=== PATIENT | female | born 1980 | race American Indian/Alaskan Native ===

== ENCOUNTER 2016-08-03 21:27 | Emergency (ER) | payer BC ==
[2016-08-03 23:18] VITALS: BP 126/90
[2016-08-03 23:43] LABS: Hematocrit 44.2 % (30.3-42.9); Hemoglobin 14.8 gm/dl (10.1-14.3); Mean Corpuscular HGB Conc 34 % (30-34); Mean Corpuscular Hemoglobin 30 pg (28-32); Mean Corpuscular Volume 88 fl (79-97); Platelet Count 394 K/mm3 (140-440); Red Blood Count 5.01 M/mm3 (3.65-5.03); Red Cell Distribution Width 13.4 % (13.2-15.2); White Blood Count 13.2 K/mm3 (4.5-11.0)
[2016-08-03 23:56] LABS: Anion Gap 20 mmol/L; Blood Urea Nitrogen 9 mg/dL (7-17); Calcium 9.3 mg/dL (8.4-10.2); Carbon Dioxide 26 mmol/L (22-30); Chloride 93.4 mmol/L (98-107); Glucose 98 mg/dL (65-100); Potassium 3.1 mmol/L (3.6-5.0); Sodium 136 mmol/L (137-145)
[2016-08-04 01:14] LABS: Basophils % (Manual) 0 % (0.0-1.8); Blastocytes % (Manual) 0 %; Eosinophils % (Manual) 0 % (0.0-4.3)
[2016-08-04 01:15] LABS: Diff Status Complete; RBC Morphology Normal
[2016-08-04 01:41] LABS: Bacteria,Urine 1+ /HPF (Negative); Bilirubin,Urine NEG (Negative); Blood,Urine NEG (Negative); Ketones,Urine NEG (Negative); Leukocyte Esterase,Urine NEG (Negative); Mucus,Urine 1+ /HPF; Nitrite,Urine NEG (Negative); Protein,Urine <15 mg/dL mg/dL (Negative); Urobilinogen,Urine < 2.0 mg/dL (<2.0)
--- NOTE | 2016-08-05 19:27 | ED Elopement Review ---
ED Pt Elopement review - Results review Lab results: Laboratory Tests 08/03/16 08/03/16 08/04/16 23:27 23:27 00:46 WBC 13.2 H RBC 5.01 Hgb 14.8 H Hct 44.2 H MCV 88 MCH 30 MCHC 34 RDW 13.4 Plt Count 394 Lymph # Patrol Supervisor Add Manual Diff Complete Total Counted 100 Seg Neuts % (Manual) 61.0 Band Neutrophils % 0 Lymphocytes % (Manual) 31.0 Reactive Lymphs % (Man) 2.0 Monocytes % (Manual) 6.0 Eosinophils % (Manual) 0 Basophils % (Manual) 0 Metamyelocytes % 0 Myelocytes % 0 Promyelocytes % 0 Blast Cells % 0 Nucleated RBC % Not Reportable Seg Neutrophils # Man 8.1 H Band Neutrophils # 0.0 Lymphocytes # (Manual) 4.1 Abs React Lymphs (Man) 0.3 Monocytes # (Manual) 0.8 Eosinophils # (Manual) 0.0 Basophils # (Manual) 0.0 Metamyelocytes # 0.0 Myelocytes # 0.0 Promyelocytes # 0.0 Blast Cells # 0.0 WBC Morphology Not Reportable Hypersegmented Neuts Not Reportable Hyposegmented Neuts Not Reportable Hypogranular Neuts Not Reportable Smudge Cells Not Reportable Toxic Granulation Not Reportable Toxic Vacuolation Not Reportable Dohle Bodies Not Reportable Pelger-Huet Anomaly Not Reportable Bebeto Rods Not Reportable Platelet Estimate Appears normal Clumped Platelets Not Reportable Plt Clumps, EDTA Not Reportable Large Platelets Not Reportable Giant Platelets Not Reportable Platelet Satelliting Not Reportable Plt Morphology Comment Not Reportable RBC Morphology Normal Dimorphic RBCs Not Reportable Polychromasia Not Reportable Hypochromasia Not Reportable Poikilocytosis Not Reportable Anisocytosis Not Reportable Microcytosis Not Reportable Macrocytosis Not Reportable Spherocytes Not Reportable Pappenheimer Bodies Not Reportable Sickle Cells Not Reportable Target Cells Not Reportable Tear Drop Cells Not Reportable Ovalocytes Not Reportable Helmet Cells Not Reportable Mendoza-Hilltop Bodies Not Reportable [place] Rings Not Reportable [place] Cells Not Reportable Bite Cells Not Reportable Crenated Cell Not Reportable Elliptocytes Not Reportable Acanthocytes (Spur) Not Reportable Rouleaux Not Reportable Hemoglobin C Crystals Not Reportable Schistocytes Not Reportable Malaria parasites Not Reportable Nikolas Bodies Not Reportable Hem Pathologist Commnt No Sodium 136 L Potassium 3.1 L Chloride 93.4 L Carbon Dioxide 26 Anion Gap 20 BUN 9 Creatinine 1.0 Estimated GFR > 60 BUN/Creatinine Ratio 9.00 Glucose 98 Calcium 9.3 Urine Color Yellow Urine Turbidity Slightly-cloudy Urine pH 5.0 Ur Specific [place] 1.025 Urine Protein <15 mg/dl Urine Glucose (UA) Neg Urine Ketones Neg Urine Blood Neg Urine Nitrite Neg Ur Reducing Substances Not Reportable Urine Bilirubin Neg Urine Ictotest Not Reportable Urine Urobilinogen < 2.0 Ur Leukocyte Esterase Neg Urine WBC (Auto) 2.0 Urine RBC (Auto) 1.0 U Epithel Cells (Auto) 9.0 Urine Bacteria (Auto) 1+ Urine Mucus 1+ Urine HCG, Qual Negative - Call Back decision Pt Call Back Decision: No action required
== END 2016-08-04 06:25 | disposition left against medical advice (07) ==
LOC: ED 21:27
DX: G43.909 Migraine, unspecified, not intractable, without status migrainosus (principal); R19.7 Diarrhea, unspecified; R11.2 Nausea with vomiting, unspecified; Z88.8 Allergy status to other drugs, medicaments and biological substances; Z53.21 Procedure and treatment not carried out due to patient leaving prior to being seen by health care provider
CPT/HCPCS: 36415; 80048; 81001; 81025; 85007; 85025

== ENCOUNTER 2016-09-11 10:25 | Emergency (ER) | payer BC ==
--- NOTE | 2016-09-11 11:19 | Emergency Department Report ---
Entered by HIGINIO RANGEL, acting as scribe for MARIBEL MCKAY NP. Chief Complaint: Headache Stated Complaint: LUMBAR PUNCTURE HEADACHE Time Seen by Provider: 09/11/16 10:56 - HPI History of Present Illness: 36 y/o female presents c/o DE LEON that started yesterday after a lumbar puncture. Hx includes migraines. She notes having an appt with her PCP in 3 days. she had procedure at [facility] of suspected MS. she is neuro intact no photophobia out of her pain meds nothing makes pain better or worse playing on her cell phone NAD ambulatory VSS MAEW no focal or neuro deficit Discussed w Dr Pena Records requested of medic in fast track from yesterday. - ROS Review of Systems: as noted in HPI - Exam Vital Signs: Vital Signs 09/11/16 10:36 Temperature 98.3 F Pulse Rate 81 Respiratory 18 Rate Blood Pressure 144/91 O2 Sat by Pulse 100 Oximetry Physical Exam: as noted in HPI MSE screening note: Focused history and physical exam performed. Due to findings the following was ordered: Patient discussed with doctor:: ANGEL PENA ED Disposition for MSE Condition: Stable This documentation as recorded by the scribe,HIGINIO RANGEL,accurately reflects the service I personally performed and the decisions made by me,MARIBEL MCKAY NP.
[2016-09-11] MEDS ORDERED: MORPHINE IV ONE (13:09)
[2016-09-11] MEDS ORDERED: ZOFRAN IV ONE (13:09)
[2016-09-11] MEDS ORDERED: NACL 0.9% 1000 ML 1,000 ML IV ONE (13:09)
--- NOTE | 2016-09-11 13:11 | Emergency Department Report ---
ED Headache HPI - General Chief Complaint: Headache Stated Complaint: LUMBAR PUNCTURE HEADACHE Time Seen by Provider: 09/11/16 13:08 Source: patient, family Exam Limitations: no limitations - History of Present Illness Initial Comments: Here reported that she had lumbar puncture at [facility] yesterday. She said the physician felt like she had MS and did a LP. Patient denies any fever or chills. Denies any nausea or vomiting. She said she usually has migraine but she is having a headache that is worse with movement that's not her usual migraine padding pattern. She said her headache started 3 hours after LP and she came today by EMS. She reports that she's having nausea and also pain in the back of her neck. Denies any injury. Pain is started in the back of her head radiating to the front and it started about a 10 and achy and throbbing. Denies any numbness or tingling to extremities. positie lower back pain. Denies any loss of bowel or bladder control. Patient was placed on oxycodone and Phenergan with Rizatriptan and Prozac for headache yesterday and she reports that it is not helping. Timing/Duration: 24 hours Quality: severe, achy, throbbing Head Injury Location: other (no head injury) Recent Head Trauma: chronic headaches, other (status post LP) Modifying Factors: improves with: medication, movement Associated Symptoms: nausea/vomiting. denies: confusion, fatigue, facial pain, fever/chills, flushing, loss of consciousness, nasal congestion, nasal drainage , numbness in legs/feet, rash, seizures, sinus infection, stiff neck, vision changes, weakness Allergies/Adverse Reactions: Allergies tramadol Allergy (Verified 05/10/13 17:06) Unknown naproxen [From Naprosyn] Adverse Reaction (Verified 07/29/13 21:12) Shortness of Breath Home Medications: Ambulatory Orders Promethazine [Phenergan] 25 mg PO HS PRN #5 tab 10/24/14 Cymbalta 20 mg PO DAILY 09/11/16 Oxycodone HCl/Acetaminophen [Percocet 7.5/325 mg] 1 each PO Q6HR PRN 09/11/16 Rizatriptan Benzoate [Maxalt] 10 mg PO PRN 09/11/16 ED Review of Systems ROS: Stated complaint: LUMBAR PUNCTURE HEADACHE Other details as noted in HPI Comment: All other systems reviewed and negative Constitutional: denies: chills, fever Eyes: denies: eye pain, vision change ENT: denies: ear pain, throat pain, congestion Respiratory: no symptoms reported Cardiovascular: denies: chest pain, palpitations, edema, syncope Gastrointestinal: nausea, vomiting. denies: abdominal pain, diarrhea, constipation, hematemesis Musculoskeletal: back pain, other (neck pain). denies: arthralgia Skin: denies: rash Neurological: headache. denies: weakness, numbness, paresthesias, confusion, abnormal gait, vertigo ED Past Medical Hx - Past Medical History Previous Medical History?: Yes Hx Hypertension: Yes Hx Congestive Heart Failure: No Hx Diabetes: No Hx Headaches / Migraines: Yes Hx Asthma: No Hx COPD: No Hx HIV: No Additional medical history: migraines - Surgical History Past Surgical History?: Yes Additional Surgical History: tonsillectomy - Family History Family history: no significant - Social History Smoking Status: Never Smoker Substance Use Type: Prescribed - Medications Home Medications: Home Medications Medication Instructions Recorded Confirmed Last Taken Type Promethazine [Phenergan] 25 mg PO HS PRN #5 tab 10/24/14 Unknown Rx Cymbalta 20 mg PO DAILY 09/11/16 09/11/16 Unknown History Oxycodone HCl/Acetaminophen 1 each PO Q6HR PRN 09/11/16 09/11/16 Unknown History [Percocet 7.5/325 mg] Rizatriptan Benzoate [Maxalt] 10 mg PO PRN 09/11/16 09/11/16 Unknown History ED Physical Exam - General Limitations: No Limitations General appearance: alert, in no apparent distress - Head Head exam: Present: atraumatic, normocephalic, normal inspection - Expanded Head Exam Expanded Head exam: Absent: laceration, abrasion, contusion, hematoma, racoon eyes, taylor's sign, general tenderness, tenderness of temporal artery, CSF rhinorrhea , CSF otorrhea - Eye Eye exam: Present: normal appearance, PERRL, EOMI. Absent: conjunctival injection, periorbital swelling, periorbital tenderness Pupils: Present: normal accommodation - ENT ENT exam: Present: normal exam, normal orophraynx, mucous membranes moist, TM's normal bilaterally, normal external ear exam - Neck Neck exam: Present: normal inspection, full ROM. Absent: tenderness, meningismus, lymphadenopathy - Expanded Neck Exam Expanded Neck exam: Absent: tenderness, midline deformity, anterior neck swelling, tracheal deviation - Respiratory Respiratory exam: Present: normal lung sounds bilaterally. Absent: respiratory distress, chest wall tenderness - Cardiovascular Cardiovascular Exam: Present: regular rate, normal rhythm, normal heart sounds - GI/Abdominal GI/Abdominal exam: Present: soft, normal bowel sounds. Absent: distended, tenderness, guarding, rebound, rigid - Extremities Exam Extremities exam: Present: normal inspection, full ROM, normal capillary refill. Absent: tenderness, pedal edema, joint swelling, calf tenderness - Back Exam Back exam: Present: normal inspection, full ROM, tenderness (L spine at LP site) , other (Band-Aid to LP site. Removed and no redness swelling or drainage noted. Mild tenderness to palpate to lumbar puncture site at L spine.). Absent : CVA tenderness (R), CVA tenderness (L), muscle spasm, paraspinal tenderness, vertebral tenderness, rash noted - Expanded Back Exam Expanded Back exam: Absent: saddle anesthesia Back exam: Negative Straight Leg Raising: Left, Right - Neurological Exam Neurological exam: Present: alert, oriented X3, normal gait, reflexes normal. Absent: motor sensory deficit - Expanded Neurological Exam Expanded Neurological exam: Absent: innattentive, memory loss-remote event, memory loss- recent event, ataxia, receptive aphasia, expressive aphasia, total aphasia, tremor, protecting the airway Patient oriented to: Present: person, place, time Speech: Present: fluid speech Cranial nerves: EOM's Intact: Normal, Gag Reflex: Normal, Nystagmus: Normal, Facial Sensation: Normal Cerebellar function: Romberg: Normal Upper motor neuron: Pronator Drift: Normal, Sensory Extinction: Normal Sensory exam: Upper Extremity Light Touch: Normal, Upper Extremity Pin Prick: Normal, Upper Extremity Temperature: Normal, UE 2 Point Discrimination: Normal, Lower Extremity Light Touch: Normal, Lower Extremity Pin Prick: Normal, Lower Extremity Temperature: Normal, LE 2 Point Discrimination: Normal Motor strength exam: RUE: 5, LUE: 5, RLE: 5, LLE: 5 DTR: bicep (R): 2+, bicep (L): 2+, tricep (R): 2+, tricep (L): 2+, knee (R): 2+ , knee (L): 2+, ankle (R): 2+, ankle (L): 2+ Best Eye Response (Samia): (4) open spontaneously Best Motor Response (Samia): (6) obeys commands Best Verbal Response (Samia): (5) oriented [place] Total: 15 - Psychiatric Psychiatric exam: Present: normal affect, normal mood - Skin Skin exam: Present: warm, dry, intact, normal color, other (lumbar spine area at LP site without any redness, swelling or drainage.) ED Course Vital Signs 09/11/16 09/11/16 09/11/16 10:36 16:19 17:29 Temperature 98.3 F Pulse Rate 81 78 78 Respiratory 18 20 Rate Blood Pressure 144/91 Blood Pressure 158/116 140/92 [Left] O2 Sat by Pulse 100 98 Oximetry - Reevaluation(s) Reevaluation #1: 09/11/16 16:18 Patient status post blood patch done by anesthesiologist. She is currently laying flat and he will be coming back to reassess her in 30 minutes. During ED stay patient received 1 L of IV fluid, a milligram of morphine and 4 mg of Zofran IV. Her headache was not relieved says she received additional Percocet 2 tablets. Vitals Signs are stable. Reevaluation #2: 09/11/16 16:59 Patient stabilizes. She is resting status post blood patch. No further headache per patient. reporting nausea from Percocet. 09/11/16 17:01 Reevaluation #3: 09/11/16 17:38 Anesthesia came to evaluate patient after blood patch done. Patient stable ambulating without any difficulties and she is no longer having any headache, neck pain or nausea. Reevaluation #4: 09/11/16 17:42 Patient is neurologically intact status post blood patch - Consultations Consultation #1: 09/11/16 16:19 Dr. Yariel Chery, Anesthesia for blood patch ED Medical Decision Making - Lab Data Result diagrams: 09/11/16 13:32 09/11/16 13:32 Lab Results 09/11/16 09/11/16 09/11/16 Range/Units 13:32 13:32 14:30 WBC 8.0 (4.5-11.0) K/mm3 RBC 4.25 (3.65-5.03) M/mm3 Hgb 12.5 (10.1-14.3) gm/dl Hct 38.6 (30.3-42.9) % MCV 91 (79-97) fl MCH 29 (28-32) pg MCHC 32 (30-34) % RDW 14.1 (13.2-15.2) % Plt Count 315 (140-440) K/mm3 Lymph % (Auto) 14.5 (13.4-35.0) % [place] % (Auto) 3.7 (0.0-7.3) % Eos % (Auto) 0.3 (0.0-4.3) % Baso % (Auto) 0.4 (0.0-1.8) % Lymph # 1.2 (1.2-5.4) K/mm3 [place] # 0.3 (0.0-0.8) K/mm3 Eos # 0.0 (0.0-0.4) K/mm3 Baso # 0.0 (0.0-0.1) K/mm3 Seg Neutrophils % 81.1 H (40.0-70.0) % Seg Neutrophils # 6.5 (1.8-7.7) K/mm3 Sodium 139 (137-145) mmol/L Potassium 4.2 (3.6-5.0) mmol/L Chloride 104.0 (98-107) mmol/L Carbon Dioxide 21 L (22-30) mmol/L Anion Gap 18 mmol/L BUN 8 (7-17) mg/dL Creatinine 0.7 (0.7-1.2) mg/dL Estimated GFR > 60 ml/min BUN/Creatinine Ratio 11.42 % Glucose 117 H (65-100) mg/dL Calcium 9.2 (8.4-10.2) mg/dL Urine Color Yellow (Yellow) Urine Turbidity Cloudy (Clear) Urine pH 7.0 (5.0-7.0) Ur Specific [place] 1.024 (1.003-1.030) Urine Protein <15 mg/dl (Negative) mg/dL Urine Glucose (UA) Neg (Negative) mg/dL Urine Ketones Neg (Negative) mg/dL Urine Blood Neg (Negative) Urine Nitrite Neg (Negative) Ur Reducing Substances Not Reportable Urine Bilirubin Neg (Negative) Urine Ictotest Not Reportable Urine Urobilinogen < 2.0 (<2.0) mg/dL Ur Leukocyte Esterase Neg (Negative) Urine WBC (Auto) 6.0 (0.0-6.0) /HPF Urine RBC (Auto) < 1.0 (0.0-6.0) /HPF U Epithel Cells (Auto) 4.0 (0-13.0) /HPF Urine Bacteria (Auto) 1+ (Negative) /HPF Amorphous Crystals Few Urine Mucus Few /HPF Urine HCG, Qual Negative (Negative) - Medical Decision Making ED course: S/P blood patch done by anesthesiologist. He'll reevaluate the patient after 30 minutes of procedure. Patient able to ambulate in marsh[place] without any difficulties, her blood pressure spiked after procedure but it's not normalized. She denies any headache, back pain, neck pain or nausea. Instructions was given to patient status post blood patch by anesthesiologist. I also explained to her that she needs to follow-up with her neurologist and her primary care physician. Patient given 1 L of IV fluid normal saline, 4 mg of morphine IV and 4 mg Zofran IV without any relief of headache. Her headache with positional and aggravated with getting up and moving her head. She received an additional Percocet 5/325 2 tablets and Zofran 4 mg ODT in emergency room. Patient headache relieved after that patch done. Discharged home with family in stable condition. Critical care attestation.: If time is entered above; I have spent that time in minutes in the direct care of this critically ill patient, excluding procedure time. ED Disposition Clinical Impression: Headache, post-lumbar puncture, Nausea and vomiting in adult Back pain Qualifiers: Back pain location: low back pain Chronicity: acute Back pain laterality: midline Sciatica presence: without sciatica Qualified Code(s): M54.5 - Low back pain Disposition: DISCHARGED TO HOME OR SELFCARE Is pt being admited?: No Does the pt Need Aspirin: No Condition: Stable Instructions: Lumbar Puncture (ED), Acute Low Back Pain (ED), Acute Headache ( ED), Acute Nausea and Vomiting (ED) Additional Instructions: Please rest for the next 24 hours If you, Develop recurrent headache that is not relieved by medication return to the emergency room Follow up with your neurologist and primary care physician. Referrals: PRIMARY CARE, [Primary Care Provider] - 09/12/16 CHITO CARTER MD [Staff Physician] - 2-3 Days Forms: Accompanied Note, Work/School Release Form(ED)
[2016-09-11 13:52] LABS: Basophils % (Auto) 0.4 % (0.0-1.8); Eosinophils % (Auto) 0.3 % (0.0-4.3); Hematocrit 38.6 % (30.3-42.9); Hemoglobin 12.5 gm/dl (10.1-14.3); Mean Corpuscular HGB Conc 32 % (30-34); Mean Corpuscular Hemoglobin 29 pg (28-32); Mean Corpuscular Volume 91 fl (79-97); Platelet Count 315 K/mm3 (140-440); Red Blood Count 4.25 M/mm3 (3.65-5.03); Red Cell Distribution Width 14.1 % (13.2-15.2)
[2016-09-11 14:45] LABS: Anion Gap 18 mmol/L; BUN/Creatinine Ratio 11.42; Blood Urea Nitrogen 8 mg/dL (7-17); Calcium 9.2 mg/dL (8.4-10.2); Carbon Dioxide 21 mmol/L (22-30); Glucose 117 mg/dL (65-100); Potassium 4.2 mmol/L (3.6-5.0); Sodium 139 mmol/L (137-145)
[2016-09-11 14:56] LABS: Bacteria,Urine 1+ /HPF (Negative); Bilirubin,Urine NEG (Negative); Blood,Urine NEG (Negative); Ketones,Urine NEG (Negative); Leukocyte Esterase,Urine NEG (Negative); Mucus,Urine FEW /HPF; Nitrite,Urine NEG (Negative); Protein,Urine <15 mg/dL mg/dL (Negative); RBC,Urine < 1.0 /HPF (0.0-6.0); Urobilinogen,Urine < 2.0 mg/dL (<2.0)
[2016-09-11] MEDS ORDERED: PERCOCET 5/325 PO ONE (15:43)
--- NOTE | 2016-09-11 16:38 | Progress Note ---
Subjective Date of service: 09/11/16 Interval history: Called in by ER doctor to see the patient with a headache after lumbar puncture done on 09/10/16. Headache is predominantly in occipital area worsening with the patient in the vertical position. There is also tightness in the posterior neck. Due to the character of the pain patient given options of conservative treatment or blood patch. Patient has elected blood patch option. After discussing potential benefits and complications of the procedure consent for it was obtained. In sterile conditions G20 angiocath was placed in right antecubital vein. In sterile condition G18 needle was placed in L3-L4 space and 8ml of patient's blood was injected in the epidural space until the patient felt the pressure in her lower back. Patient placed in the horizontal position on the bed. Headache became much less intense with neckache is gone. No complications Objective - Constitutional Vitals: Vital Signs - 12hr 09/11/16 09/11/16 10:36 16:19 Temperature 98.3 F Pulse Rate 81 78 Respiratory 18 20 Rate Blood Pressure 144/91 Blood Pressure 158/116 [Left] O2 Sat by Pulse 100 98 Oximetry - Labs CBC & Chem 7: 09/11/16 13:32 09/11/16 13:32 Labs: Abnormal lab results 09/11/16 09/11/16 Range/Units 13:32 13:32 Seg Neutrophils % 81.1 H (40.0-70.0) % Carbon Dioxide 21 L (22-30) mmol/L Glucose 117 H (65-100) mg/dL
[2016-09-11] MEDS ORDERED: ZOFRAN ODT PO ONE (17:02)
[2016-09-11 17:29] VITALS: BP 140/92
== END 2016-09-11 17:59 | disposition home or self-care (01) ==
LOC: ED 10:25
DX: R51 Headache (principal); R11.2 Nausea with vomiting, unspecified; M54.5 Low back pain; G43.909 Migraine, unspecified, not intractable, without status migrainosus; I10 Essential (primary) hypertension; Z88.8 Allergy status to other drugs, medicaments and biological substances
CPT/HCPCS: 36415; 80048; 81001; 81025; 85025; 96361; 96374; 96375; 99284; J2270; J2405; J7030; Q0162

== ENCOUNTER 2016-10-23 18:33 | Emergency (ER) | payer BC ==
[2016-10-23 18:45] VITALS: BP 141/97
[2016-10-23] MEDS ORDERED: DECADRON IM ONE (21:50)
--- NOTE | 2016-10-23 22:11 | Emergency Department Report ---
ED General Adult HPI - General Chief complaint: Extremity Injury, Lower Stated complaint: LT FOOT SWOLLEN /LT SIDE BODY PAIN Time Seen by Provider: 10/23/16 21:31 Source: patient Mode of arrival: Ambulatory Limitations: No Limitations - History of Present Illness Initial comments: Patient comes into the ER today with complaints of left foot pain and swelling as well as left leg pain. Patient denies any injury. Patient states the swelling seems to get worse when she is ambulatory and upper feet. Patient does state that the swelling does go down when she elevates it. Patient does state that she was recently diagnosed with MS and she is unsure as to if that's what causing some of her symptoms or if there is anything else. Patient denies any injury to the area. Patient denies any chest pain, shortness of breath, abdominal pain. -: days(s) (3) - Related Data Home Medications Medication Instructions Recorded Confirmed Last Taken Cymbalta 20 mg PO DAILY 09/11/16 09/11/16 Unknown Rizatriptan Benzoate [Maxalt] 10 mg PO PRN 09/11/16 09/11/16 Unknown Previous Rx's Medication Instructions Recorded Last Taken Type Promethazine [Phenergan TAB] 25 mg PO HS PRN #5 tab 10/24/14 Unknown Rx Acetaminophen/Codeine [Tylenol 1 tab PO Q6H PRN #18 tab 10/23/16 Unknown Rx /Codeine # 3 tab] Cyclobenzaprine [Flexeril] 10 mg PO BID PRN #20 tablet 10/23/16 Unknown Rx predniSONE [Deltasone] 20 mg PO QDAY #18 tab 10/23/16 Unknown Rx Allergies Allergy/AdvReac Type Severity Reaction Status Date / Time tramadol Allergy Unknown Verified 05/10/13 17:06 naproxen [From Naprosyn] AdvReac Shortness Verified 07/29/13 21:12 of Breath ED Review of Systems ROS: Stated complaint: LT FOOT SWOLLEN /LT SIDE BODY PAIN Other details as noted in HPI Constitutional: denies: chills, fever Eyes: denies: eye pain, eye discharge, vision change ENT: denies: ear pain, throat pain Respiratory: denies: cough, shortness of breath, wheezing Cardiovascular: denies: chest pain, palpitations Endocrine: no symptoms reported Gastrointestinal: denies: abdominal pain, nausea, diarrhea Genitourinary: denies: urgency, dysuria, discharge Musculoskeletal: other (left leg pain, left arm pain). denies: back pain, joint swelling, arthralgia Skin: denies: rash, lesions Neurological: denies: headache, weakness, numbness, paresthesias, confusion, vertigo Psychiatric: denies: anxiety, depression Hematological/Lymphatic: denies: easy bleeding, easy bruising ED Past Medical Hx - Past Medical History Previous Medical History?: Yes Hx Hypertension: Yes Hx Congestive Heart Failure: No Hx Diabetes: No Hx Headaches / Migraines: Yes Hx Asthma: No Hx COPD: No Hx HIV: No Additional medical history: migraines, MS - Surgical History Past Surgical History?: Yes Additional Surgical History: tonsillectomy - Social History Smoking Status: Never Smoker Substance Use Type: Prescribed - Medications Home Medications: Home Medications Medication Instructions Recorded Confirmed Last Taken Type Promethazine [Phenergan TAB] 25 mg PO HS PRN #5 tab 10/24/14 Unknown Rx Cymbalta 20 mg PO DAILY 09/11/16 09/11/16 Unknown History Rizatriptan Benzoate [Maxalt] 10 mg PO PRN 09/11/16 09/11/16 Unknown History Acetaminophen/Codeine [Tylenol 1 tab PO Q6H PRN #18 tab 10/23/16 Unknown Rx /Codeine # 3 tab] Cyclobenzaprine [Flexeril] 10 mg PO BID PRN #20 tablet 10/23/16 Unknown Rx predniSONE [Deltasone] 20 mg PO QDAY #18 tab 10/23/16 Unknown Rx ED Physical Exam - General Limitations: No Limitations General appearance: alert, in no apparent distress - Head Head exam: Present: atraumatic, normocephalic, normal inspection - Eye Eye exam: Present: normal appearance, PERRL, EOMI Pupils: Present: normal accommodation - ENT ENT exam: Present: normal exam, mucous membranes moist, normal external ear exam - Neck Neck exam: Present: normal inspection, full ROM. Absent: tenderness, meningismus, lymphadenopathy - Respiratory Respiratory exam: Present: normal lung sounds bilaterally. Absent: respiratory distress, wheezes, rales, rhonchi, stridor, chest wall tenderness, decreased breath sounds - Cardiovascular Cardiovascular Exam: Present: regular rate, normal rhythm, normal heart sounds. Absent: systolic murmur, diastolic murmur, rubs, gallop - GI/Abdominal GI/Abdominal exam: Present: soft, normal bowel sounds. Absent: distended, tenderness - Extremities Exam Extremities exam: Present: normal inspection, full ROM, tenderness, normal capillary refill, joint swelling (minimal left ankle and foot swelling noted in comparison to right.), other (left posterior hamstring tenderness along the sciatic line). Absent: pedal edema, calf tenderness - Back Exam Back exam: Present: normal inspection, tenderness (left SI joint tenderness that patient states reproduces pain into left leg). Absent: CVA tenderness (R) , CVA tenderness (L) - Neurological Exam Neurological exam: Present: alert, oriented X3, CN II-XII intact, normal gait, reflexes normal. Absent: motor sensory deficit - Psychiatric Psychiatric exam: Present: normal affect, normal mood. Absent: anxious - Skin Skin exam: Present: warm, dry, intact, normal color. Absent: rash ED Course Vital Signs 10/23/16 18:42 Temperature 98.5 F Pulse Rate 99 H Respiratory 18 Rate Blood Pressure 141/97 O2 Sat by Pulse 99 Oximetry ED Medical Decision Making - Medical Decision Making Patient is nontoxic and hemodynamically stable. I informed patient that some of her symptoms may be related to her MS. Exam-romero, patient does have findings more consistent with sciatica. Physical exam is not consistent with potential DVT. Patient states that the swelling subsides with elevation. Patient was given Decadron 10 mg IM here in the ER and I will continue her on a short course of medications to decrease inflammation as well as treat her pain. Patient has not started on her medications prescribed by the specialist for her MS. I have instructed patient on signs and symptoms to look for towards any DVT, but at this time she clinically does not have such symptoms. Patient is in agreement with treatment plan and patient is stable for discharge. Critical care attestation.: If time is entered above; I have spent that time in minutes in the direct care of this critically ill patient, excluding procedure time. ED Disposition Clinical Impression: Left leg pain, Sciatica of left side, History of multiple sclerosis Disposition: TO HOME OR SELFCARE Is pt being admited?: No Does the pt Need Aspirin: No Condition: Good Instructions: Lumbar Radiculopathy (ED), Sciatica (ED) Prescriptions: Acetaminophen/Codeine [Tylenol /Codeine # 3 tab] 1 tab PO Q6H PRN #18 tab PRN Reason: Pain Cyclobenzaprine [Flexeril] 10 mg PO BID PRN #20 tablet PRN Reason: Muscle Spasm predniSONE [Deltasone] 20 mg PO QDAY #18 tab Referrals: PRIMARY CARE, [Primary Care Provider] - 3-5 Days Time of Disposition: 22:15
== END 2016-10-23 22:29 | disposition home or self-care (01) ==
LOC: ED 18:33
DX: M79.605 Pain in left leg (principal); M54.32 Sciatica, left side; I10 Essential (primary) hypertension; G43.909 Migraine, unspecified, not intractable, without status migrainosus; Z88.6 Allergy status to analgesic agent
CPT/HCPCS: 96372; 99282; J1100

== ENCOUNTER 2017-02-08 20:38 | Emergency (ER) | payer BC ==
[2017-02-08 21:17] LABS: Basophils % (Auto) 0.6 % (0.0-1.8); Eosinophils % (Auto) 2.5 % (0.0-4.3); Hematocrit 39.5 % (30.3-42.9); Hemoglobin 12.7 gm/dl (10.1-14.3); Mean Corpuscular HGB Conc 32 % (30-34); Mean Corpuscular Hemoglobin 30 pg (28-32); Mean Corpuscular Volume 92 fl (79-97); Platelet Count 299 K/mm3 (140-440); Red Blood Count 4.31 M/mm3 (3.65-5.03); Red Cell Distribution Width 14.3 % (13.2-15.2); White Blood Count 7.2 K/mm3 (4.5-11.0)
[2017-02-08 21:32] LABS: Anion Gap 16 mmol/L; BUN/Creatinine Ratio 14.28; Blood Urea Nitrogen 10 mg/dL (7-17); Calcium 9.7 mg/dL (8.4-10.2); Carbon Dioxide 27 mmol/L (22-30); Chloride 101.2 mmol/L (98-107); Glucose 82 mg/dL (65-100); Potassium 4.2 mmol/L (3.6-5.0); Sodium 140 mmol/L (137-145)
[2017-02-08 21:55] LABS: Bilirubin,Urine NEG (Negative); Blood,Urine NEG (Negative); Ketones,Urine NEG (Negative); Leukocyte Esterase,Urine NEG (Negative); Mucus,Urine FEW /HPF; Nitrite,Urine NEG (Negative); Protein,Urine <15 mg/dL mg/dL (Negative); WBC,Urine < 1.0 /HPF (0.0-6.0)
[2017-02-09 10:05] VITALS: BP 134/67
--- NOTE | 2017-02-09 12:10 | Emergency Department Report ---
ED General Adult HPI - General Chief complaint: Pain General Stated complaint: BODY PAIN FROM MS Time Seen by Provider: 02/09/17 12:06 Source: patient Mode of arrival: Ambulatory Limitations: No Limitations - History of Present Illness Initial comments: "My whole body hurts". Patient believes that she is having MS body pain. She states that she was diagnosed with MS on the basis of an MRI and spinal tap and goes to an MS clinic. She takes oxycodone for migraine as well. She does not localize her pain it is just allodynia. She denies any swollen joints. She's had no neurological change. She denies fever or chills. The patient states she takes 40 mg of prednisone Q OD. -: Gradual, days(s) Radiation: non-radiation Severity scale (0 -10): 0 Quality: aching Consistency: intermittent Improves with: none Worsens with: none Associated Symptoms: denies other symptoms Treatments Prior to Arrival: none - Related Data Home Medications Medication Instructions Recorded Confirmed Last Taken Baclofen 20 mg PO TID 02/08/17 02/08/17 Unknown Copaxone 40 mg IM 3XW 02/08/17 02/08/17 Unknown Ondansetron [Zofran TAB] 1 tab PO TID PRN 02/08/17 02/08/17 Unknown Percocet 10/325 mg 1 tab PO TID 02/08/17 02/08/17 Unknown Previous Rx's Medication Instructions Recorded Last Taken Type HYDROcodone/APAP 5-325 [[place] 1 each PO Q4HR PRN #14 tablet 02/09/17 Unknown Rx 5/325] Allergies Allergy/AdvReac Type Severity Reaction Status Date / Time tramadol Allergy Unknown Verified 05/10/13 17:06 naproxen [From Naprosyn] AdvReac Shortness Verified 07/29/13 21:12 of Breath ED Review of Systems ROS: Stated complaint: BODY PAIN FROM MS Other details as noted in HPI Constitutional: denies: chills, fever Eyes: denies: eye pain, eye discharge, vision change ENT: denies: ear pain, throat pain Respiratory: denies: cough, shortness of breath, wheezing Cardiovascular: denies: chest pain, palpitations Endocrine: no symptoms reported Gastrointestinal: denies: abdominal pain, nausea, diarrhea Genitourinary: denies: urgency, dysuria, discharge Musculoskeletal: as per HPI. denies: back pain, joint swelling, arthralgia Skin: denies: rash, lesions Neurological: denies: headache, weakness, paresthesias Psychiatric: denies: anxiety, depression Hematological/Lymphatic: denies: easy bleeding, easy bruising ED Past Medical Hx - Past Medical History Hx Hypertension: Yes Hx Congestive Heart Failure: No Hx Diabetes: No Hx Headaches / Migraines: Yes Hx Asthma: No Hx COPD: No Hx HIV: No Additional medical history: migraines, MS - Surgical History Additional Surgical History: tonsillectomy - Social History Smoking Status: Never Smoker Substance Use Type: None - Medications Home Medications: Home Medications Medication Instructions Recorded Confirmed Last Taken Type Baclofen 20 mg PO TID 02/08/17 02/08/17 Unknown History Copaxone 40 mg IM 3XW 02/08/17 02/08/17 Unknown History Ondansetron [Zofran TAB] 1 tab PO TID PRN 02/08/17 02/08/17 Unknown History Percocet 10/325 mg 1 tab PO TID 02/08/17 02/08/17 Unknown History HYDROcodone/APAP 5-325 [[place] 1 each PO Q4HR PRN #14 tablet 02/09/17 Unknown Rx 5/325] ED Physical Exam - General Limitations: No Limitations General appearance: alert, in no apparent distress - Head Head exam: Present: atraumatic, normocephalic - Eye Eye exam: Present: normal appearance, PERRL, EOMI. Absent: scleral icterus - ENT ENT exam: Present: mucous membranes moist - Neck Neck exam: Present: normal inspection. Absent: tenderness, meningismus - Respiratory Respiratory exam: Present: normal lung sounds bilaterally. Absent: respiratory distress - Cardiovascular Cardiovascular Exam: Present: regular rate, normal rhythm. Absent: systolic murmur, diastolic murmur, rubs, gallop - GI/Abdominal GI/Abdominal exam: Present: soft, normal bowel sounds. Absent: distended, tenderness, guarding, rebound, rigid - Extremities Exam Extremities exam: Present: normal inspection - Back Exam Back exam: Present: normal inspection - Neurological Exam Neurological exam: Present: alert, oriented X3, CN II-XII intact. Absent: motor sensory deficit - Psychiatric Psychiatric exam: Present: normal affect, normal mood - Skin Skin exam: Present: warm, dry, intact, normal color. Absent: rash ED Course Vital Signs 02/08/17 02/09/17 02/09/17 20:43 00:49 05:03 Temperature 99.4 F 98.0 F 97.8 F Pulse Rate 77 67 71 Respiratory 18 20 20 Rate Blood Pressure 136/92 144/89 157/96 O2 Sat by Pulse 100 100 100 Oximetry 02/09/17 02/09/17 10:03 10:05 Temperature Pulse Rate 74 Respiratory 17 Rate Blood Pressure 134/67 O2 Sat by Pulse 100 Oximetry - Reevaluation(s) Reevaluation #1: Patient will be given IM Decadron and by mouth analgesia. She is referred back to her MS physician for further care and evaluation. She is instructed to watch her blood pressure after the steroid injection. 02/09/17 12:21 ED Medical Decision Making - Lab Data Result diagrams: 02/08/17 21:00 02/08/17 21:00 Laboratory Results - last 24 hr 02/08/17 02/08/17 02/08/17 21:00 21:00 21:00 WBC 7.2 RBC 4.31 Hgb 12.7 Hct 39.5 MCV 92 MCH 30 MCHC 32 RDW 14.3 Plt Count 299 Lymph % (Auto) 32.9 [place] % (Auto) 7.1 Eos % (Auto) 2.5 Baso % (Auto) 0.6 Lymph # 2.4 [place] # 0.5 Eos # 0.2 Baso # 0.0 Seg Neutrophils % 56.9 Seg Neutrophils # 4.1 Carbon Dioxide 27 BUN 10 Creatinine 0.7 Estimated GFR > 60 BUN/Creatinine Ratio 14.28 Glucose 82 Calcium 9.7 HCG, Qual Negative Urine Color Urine Turbidity Urine pH Ur Specific [place] Urine Protein Urine Glucose (UA) Urine Ketones Urine Blood Urine Nitrite Urine Bilirubin Urine Urobilinogen Ur Leukocyte Esterase Urine WBC (Auto) Urine RBC (Auto) U Epithel Cells (Auto) Urine Mucus 02/08/17 21:34 WBC RBC Hgb Hct MCV MCH MCHC RDW Plt Count Lymph % (Auto) [place] % (Auto) Eos % (Auto) Baso % (Auto) Lymph # [place] # Eos # Baso # Seg Neutrophils % Seg Neutrophils # Carbon Dioxide BUN Creatinine Estimated GFR BUN/Creatinine Ratio Glucose Calcium HCG, Qual Urine Color Yellow Urine Turbidity Clear Urine pH 7.0 Ur Specific [place] 1.017 Urine Protein <15 mg/dl Urine Glucose (UA) Neg Urine Ketones Neg Urine Blood Neg Urine Nitrite Neg Urine Bilirubin Neg Urine Urobilinogen 2.0 Ur Leukocyte Esterase Neg Urine WBC (Auto) < 1.0 Urine RBC (Auto) 4.0 U Epithel Cells (Auto) 1.0 Urine Mucus Few Na 140 K 4.2 CL101.2 AG 16 Critical care attestation.: If time is entered above; I have spent that time in minutes in the direct care of this critically ill patient, excluding procedure time. ED Disposition Clinical Impression: Multiple sclerosis, Allodynia Disposition: [id number]-01 TO HOME OR SELFCARE Is pt being admited?: No Does the pt Need Aspirin: No Condition: Stable Instructions: Hypertension (ED) Additional Instructions: Check your blood pressure after the steroid shot as it may cause it to go up. Follow-up with her usual physicians. See her MS physician for further advice on your steroid protocol. Prescriptions: HYDROcodone/APAP 5-325 [[place] 5/325] 1 each PO Q4HR PRN #14 tablet PRN Reason: Pain Referrals: MAHAMED YAN MD [Primary Care Provider] - 3-5 Days Forms: Work/School Release Form(ED) Time of Disposition: 12:24
[2017-02-09] MEDS ORDERED: NORCO 5/325 PO ONE (12:27)
[2017-02-09] MEDS ORDERED: DECADRON IM ONE (12:27)
== END 2017-02-09 12:57 | disposition home or self-care (01) ==
LOC: ED 20:38
DX: G35 Multiple sclerosis (principal); I10 Essential (primary) hypertension; G43.909 Migraine, unspecified, not intractable, without status migrainosus
CPT/HCPCS: 36415; 80048; 81001; 84703; 85025; 96372; 99283; J1100

== ENCOUNTER 2017-05-17 09:45 | Outpatient (CLI) | payer BC ==
[2017-05-17 11:06] LABS: Blood Urea Nitrogen 8 mg/dL (7-17)
--- NOTE | 2017-05-17 13:43 | Magnetic Resonance Report ---
MRI BRAIN WITH/WITHOUT CONTRAST: History: Trigeminal neuralgia. Technique: Multiple T1 and T2 weighted images were obtained in multiple planes. Axial diffusion and gradient imaging was performed. Post contrast T1 images in two planes were obtained following IV gadolinium. Findings: The brain parenchyma signal intensity and its escobar-white interface are normal on all sequences. No abnormal parenchymal signal. No diffusion restriction, hemorrhage, mass effect or extra-axial fluid collection. Ventricular size is normal and symmetric. The basal cisterns are clear. The brainstem and cerebellar hemispheres are within normal limits. The fourth ventricle is midline. The paranasal sinuses and mastoid air cells are well aerated. Normal flow voids are identified in the appropriate vessels at the ione of [place]. No abnormal enhancement is identified following IV gadolinium. Impression: 1. Unremarkable MRI brain with and without contrast.
--- NOTE | 2017-05-18 11:00 | Magnetic Resonance Report ---
MRI CERVICAL SPINE WITHOUT AND WITH CONTRAST: 05/17/17 11:00:00 CLINICAL: Trigeminal neuralgia. TECHNIQUE: Sagittal T1,T2 and STIR and axial gradient T2* sequences plus sagittal and axial postcontrast T1 fat sat sequences on a 1.5 Kindra magnet. 15.0 cc of Multihance was injected intravenously for the contrast portion of the exam and so was obtained prior to administration of contrast. FINDINGS:Straightening of the cervical spine and reversal of curvature at C3-C5. Normal vertebral height and alignment. The disc spaces are normal. The cerebellar tonsils are in normal position. The small cord is normal size with normal signal. C2-3: Intact. C3-4:The posterior longitudinal ligament is displaced by a right paracentral extruded disc fragment measuring approximately 7 x 7 x 5 mm. The fragment produces right lateral recess stenosis and mass effect on the cord. However, cord signal is normal. Posterior osteophytes contribute to the canal stenosis. Mild bilateral neural foraminal narrowing. C4-5: A small left paracentral focal disc protrusion producing mild narrowing of the left lateral recess. Uncal osteophytes and mild bilateral neural foraminal narrowing. C5-6:Intact. C6-7:Intact. C7-T1:Intact. IMPRESSION: 1. 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 2. A small left C4-5 paracentral focal disc protrusion producing mild left lateral recess stenosis. 3. No cord lesion.
== END 2017-05-17 09:46 | disposition home or self-care (01) ==
LOC: MRI 09:45
PROVIDERS: ATTEND Neurological Surgery
DX: G50.0 Trigeminal neuralgia (principal); G35 Multiple sclerosis; M48.02 Spinal stenosis, cervical region; M50.31 Other cervical disc degeneration, high cervical region; M50.221 Other cervical disc displacement at C4-C5 level; M43.8X2 Other specified deforming dorsopathies, cervical region
CPT/HCPCS: 36415; 70553; 72156; 82565; 84520; A9577

== ENCOUNTER 2017-07-11 14:28 | Emergency (ER) | payer BC ==
[2017-07-11 15:10] VITALS: BP 123/70
--- NOTE | 2017-07-11 16:36 | Emergency Department Report ---
Blank Doc - Documentation Documentation: Patient is a 37-year-old [place] female who several days ago hit her right knee at work. Patient have difficulty walking. X-rays
--- NOTE | 2017-07-11 18:14 | XRay Report ---
FINAL REPORT PROCEDURE: XR KNEE 3V RT TECHNIQUE: Right knee radiographs, AP, lateral and oblique views. CPT 98935 HISTORY: Trauma. Pain. COMPARISON: No prior studies are available for comparison. FINDINGS: No evidence of fracture, dislocation or joint effusion. Mild osteoarthritic changes seen in the medial compartment of the knee and patellar femoral joint space. Lateral compartment is well maintained. Bone density appears normal. IMPRESSION: Mild osteoarthritis. No evidence of fracture or dislocation..
--- NOTE | 2017-07-11 18:27 | Emergency Department Report ---
ED Lower Extremity HPI - General Chief Complaint: Extremity Injury, Lower Stated Complaint: KNEE PAIN Time Seen by Provider: 07/11/17 16:28 Source: patient Mode of arrival: Ambulatory Limitations: No Limitations - History of Present Illness Initial Comments: Patient is a 37-year-old Indian female who 1 week ago hit her right knee at work. Patient reports that she had a fall and hit her right knee and she is having pain 8 out of 10 and worse with movement. She is that she's been taking [id number] Motrin and it's not helping. Denies any numbness or tingling in proximally or distally. Pain is located to anterior knee. Worse with walking and better with rest. MD Complaint: knee injury Onset/Timin -: week(s) Injury: Knee: Right (pain secondary to injury) Type of Injury: other (fall) Place: work Severity: severe Severity scale (0 -10): 8 Improves With: immobilization, rest Worsens With: weight bearing, movement, palpation Context: fall Associated Symptoms: swelling, ambulatory. denies: snap/pop sensation, numbness , tingling, unable to bear weight, able to partially bear weight Treatments Prior to Arrival: NSAIDS (of note is she says she is allergic to naproxen she said that she to Motrin.) - Related Data Home Medications Medication Instructions Recorded Confirmed Last Taken Baclofen 20 mg PO TID 02/08/17 02/08/17 Unknown Copaxone 40 mg IM 3XW 02/08/17 02/08/17 Unknown Ondansetron [Zofran TAB] 1 tab PO TID PRN 02/08/17 02/08/17 Unknown Percocet 10/325 mg 1 tab PO TID 02/08/17 02/08/17 Unknown Previous Rx's Medication Instructions Recorded Last Taken Type HYDROcodone/APAP 5-325 [[place] 1 each PO Q4HR PRN #14 tablet 02/09/17 Unknown Rx 5/325] Ibuprofen [Motrin] 600 mg PO Q8H PRN #12 tablet 07/11/17 Unknown Rx Allergies Allergy/AdvReac Type Severity Reaction Status Date / Time tramadol Allergy Unknown Verified 05/10/13 17:06 naproxen [From Naprosyn] AdvReac Shortness Verified 07/29/13 21:12 of Breath ED Review of Systems ROS: Stated complaint: KNEE PAIN Other details as noted in HPI Comment: All other systems reviewed and negative Constitutional: no symptoms reported Respiratory: no symptoms reported Cardiovascular: denies: chest pain, palpitations, dyspnea on exertion, edema, syncope Gastrointestinal: denies: abdominal pain, nausea, vomiting Genitourinary: denies: dysuria, hematuria Musculoskeletal: joint swelling, arthralgia. denies: back pain, myalgia Skin: denies: rash Neurological: denies: headache, weakness, numbness, paresthesias, confusion, abnormal gait ED Past Medical Hx - Past Medical History Previous Medical History?: Yes Hx Hypertension: Yes Hx Congestive Heart Failure: No Hx Diabetes: No Hx Headaches / Migraines: Yes Hx Asthma: No Hx COPD: No Hx HIV: No Additional medical history: migraines, MS - Surgical History Past Surgical History?: Yes Additional Surgical History: tonsillectomy - Family History Family history: hypertension - Social History Smoking Status: Never Smoker Substance Use Type: None - Medications Home Medications: Home Medications Medication Instructions Recorded Confirmed Last Taken Type Baclofen 20 mg PO TID 02/08/17 02/08/17 Unknown History Copaxone 40 mg IM 3XW 02/08/17 02/08/17 Unknown History Ondansetron [Zofran TAB] 1 tab PO TID PRN 02/08/17 02/08/17 Unknown History Percocet 10/325 mg 1 tab PO TID 02/08/17 02/08/17 Unknown History HYDROcodone/APAP 5-325 [[place] 1 each PO Q4HR PRN #14 tablet 02/09/17 Unknown Rx 5/325] Ibuprofen [Motrin] 600 mg PO Q8H PRN #12 tablet 07/11/17 Unknown Rx ED Physical Exam - General Limitations: No Limitations General appearance: alert, in no apparent distress - Head Head exam: Present: atraumatic, normocephalic, normal inspection, other (normal exam) - Eye Eye exam: Present: normal appearance, PERRL, EOMI Pupils: Present: normal accommodation - ENT ENT exam: Present: normal exam, normal orophraynx - Neck Neck exam: Present: normal inspection, full ROM, other (no C-spine tenderness). Absent: tenderness, meningismus, lymphadenopathy, thyromegaly - Respiratory Respiratory exam: Present: normal lung sounds bilaterally. Absent: respiratory distress, chest wall tenderness, accessory muscle use - Cardiovascular Cardiovascular Exam: Present: regular rate, normal rhythm, normal heart sounds. Absent: systolic murmur, diastolic murmur - GI/Abdominal GI/Abdominal exam: Present: soft, normal bowel sounds. Absent: distended, tenderness, guarding, rebound, rigid, organomegaly, mass, bruit, pulsatile mass , hernia - Extremities Exam Extremities exam: Present: normal inspection, full ROM, normal capillary refill , other (no clubbing, cyanosis or edema. Positive pulses all extremities and no neurovascular compromise). Absent: tenderness, pedal edema, joint swelling, calf tenderness - Expanded Lower Extremity Exam Right Hip exam: Present: normal inspection, full ROM, pelvic stability. Absent: tenderness, swelling, abrasion, laceration, ecchymosis, deformity, crepidus, dislocation, erythema, external rotation, internal rotation, shortening Upper Leg exam: Present: normal inspection, full ROM. Absent: tenderness, swelling, abrasion, laceration, ecchymosis, deformity, crepidus, dislocation, erythema Knee exam: Present: normal inspection, full ROM (he showed full range of motion but she reports pain with flexion and extension to anterior knee), tenderness ( anterior knee), swelling (mild swelling anterior knee), full knee extension. Absent: abrasion, laceration, ecchymosis, deformity, crepidus, dislocation, erythema, effusion, pain w/ pronation/supination, posterior draw sign, pain/ laxity with valgus, pain/laxity with varus Lower Leg exam: Present: normal inspection, full ROM. Absent: tenderness, swelling, abrasion, laceration, ecchymosis, deformity, crepidus, dislocation, erythema, palpable cord, Jair's sign Ankle exam: Present: normal inspection, full ROM. Absent: tenderness, swelling , abrasion, laceration, ecchymosis, deformity, crepidus, dislocation, erythema Foot/Toe exam: Present: normal inspection, full ROM. Absent: tenderness, swelling, abrasion, laceration, ecchymosis, deformity, crepidus, dislocation, erythema, amputation, puncture wound, foreign body, calcaneal tenderness, tenderness at base of 5th metatarsal, nail avulsion, subungual hematoma Neuro vascular tendon exam: Present: no vascular compromise. Absent: pulse deficit, abnormal cap refill, motor deficit, sensory deficit, tendon deficit, extremity cold to touch, pallor, abnormal 2-point discrimination, decreased fine /light touch, foot drop, peroneal nerve deficit, significant pain with passive ROM of distal joint Gait: Positive: observed and limited by pain - Back Exam Back exam: Present: normal inspection, full ROM, other (ambulateswithout any difficulties). Absent: tenderness, CVA tenderness (R), CVA tenderness (L), muscle spasm, paraspinal tenderness, vertebral tenderness, rash noted - Neurological Exam Neurological exam: Present: alert, oriented X3, normal gait, reflexes normal. Absent: motor sensory deficit - Psychiatric Psychiatric exam: Present: normal affect, normal mood - Skin Skin exam: Present: warm, dry, intact, normal color. Absent: rash ED Course Vital Signs 07/11/17 15:06 Temperature 98.1 F Pulse Rate 78 Respiratory 16 Rate Blood Pressure 123/70 O2 Sat by Pulse 99 Oximetry - Reevaluation(s) Reevaluation #1: 07/11/17 19:07 Patient stable throughout ED course. X-ray without any acute findings. - Orthopedic Splinting/Casting Injury #1 Side: right Upper Extremity Immobilizer: Cornelio wrap Lower Extremity Injury Location: knee Additional Comments: Patient will good neurovascular check ED Lower Extremity MDM - Radiology Data Radiology results: report reviewed Mild osteoarthritic changes on x-ray of right knee without any fracture or dislocation - Medical Decision Making ED course: Patient here report that she injured her right knee at work one week ago and she is having the pain. X-ray of left knee shows mild osteoarthritis. This is discussed with patient and she voiced understanding. I discussed with her she'll need to follow-up with orthopedic doctor regarding right knee pain. Patient discharged home with prescription for Motrin as she's taken in the past. She says she is allergic to naproxen but she's taken Motrin in the past. Critical care attestation.: If time is entered above; I have spent that time in minutes in the direct care of this critically ill patient, excluding procedure time. ED Disposition Clinical Impression: Injury of right knee Qualifiers: Encounter type: initial encounter Qualified Code(s): S89.91XA - Unspecified injury of right lower leg, initial encounter Right knee pain Qualifiers: Chronicity: acute Qualified Code(s): M25.561 - Pain in right knee Osteoarthritis of right knee Qualifiers: Osteoarthritis type: unspecified Qualified Code(s): M17.11 - Unilateral primary osteoarthritis, right knee Disposition: - TO HOME OR SELFCARE Is pt being admited?: No Does the pt Need Aspirin: No Condition: Stable Instructions: Arthralgia (ED), Knee Exercises (GEN), Knee Pain (ED), RICE Therapy (ED) Additional Instructions: Please follow up with orthopedic doctor as instructed for osteoarthritis right knee if he continued to have pain. Please follow rice therapy and discharge instruction paperwork Take Motrin as needed for pain Rest. Prescriptions: Ibuprofen [Motrin] 600 mg PO Q8H PRN #12 tablet PRN Reason: Pain Referrals: PRIMARY CAREMD [Primary Care Provider] - 07/15/17 NELSY ARREOLA MD [Staff Physician] - 07/15/17 Forms: Work/School Release Form(ED)
== END 2017-07-11 19:59 | disposition home or self-care (01) ==
LOC: ED 14:28
DX: S89.91XA Unspecified injury of right lower leg, initial encounter (principal); M17.11 Unilateral primary osteoarthritis, right knee; I10 Essential (primary) hypertension; G43.909 Migraine, unspecified, not intractable, without status migrainosus; G35 Multiple sclerosis; Z90.89 Acquired absence of other organs; Z88.6 Allergy status to analgesic agent; W18.00XA Striking against unspecified object with subsequent fall, initial encounter; Y93.89 Activity, other specified; Y99.0 Civilian activity done for income or pay; Y92.69 Other specified industrial and construction area as the place of occurrence of the external cause
CPT/HCPCS: 99283

== ENCOUNTER 2017-12-05 11:37 | Inpatient (IN) | payer OTHER ==
[2017-12-05] MEDS ORDERED: ZOFRAN IV ONE (13:56)
[2017-12-05] MEDS ORDERED: SUBLIMAZE IV ONE (13:56)
[2017-12-05] MEDS ORDERED: DECADRON IV ONE (13:56)
--- NOTE | 2017-12-05 14:00 | Emergency Department Report ---
Blank Doc - Documentation Documentation: Patient is a 37 years old female history of multiple sclerosis and migraine. Patient presented to the ER complaining of headache and left eye pain was blurred vision for the last 3 days. Patient stated that she feel like this is one of her multiple sclerosis flare-up. Patient denied any fever, nausea or vomiting. Given patient clinical presentation, patient needed to be evaluated in our main ED.
[2017-12-05 15:11] LABS: Basophils % (Auto) 0.6 % (0.0-1.8); Eosinophils # (Auto) 0.2 K/mm3 (0.0-0.4); Eosinophils % (Auto) 2.1 % (0.0-4.3); Hematocrit 38.5 % (30.3-42.9); Hemoglobin 12.7 gm/dl (10.1-14.3); Lymphocytes # (Auto) 1.9 K/mm3 (1.2-5.4); Lymphocytes % (Auto) 26.6 % (13.4-35.0); Mean Corpuscular HGB Conc 33 % (30-34); Mean Corpuscular Hemoglobin 30 pg (28-32); Mean Corpuscular Volume 91 fl (79-97); Monocytes # (Auto) 0.6 K/mm3 (0.0-0.8); Monocytes % (Auto) 8.5 % (0.0-7.3); Platelet Count 307 K/mm3 (140-440); Red Blood Count 4.24 M/mm3 (3.65-5.03); Red Cell Distribution Width 14.4 % (13.2-15.2)
[2017-12-05 15:22] LABS: Alanine Aminotransferase 6 units/L (7-56); Albumin 4.4 g/dL (3.9-5); BUN/Creatinine Ratio 13; Blood Urea Nitrogen 13 mg/dL (7-17); Calcium 9.4 mg/dL (8.4-10.2); Hemolysis Index 5
[2017-12-05] MEDS ORDERED: MORPHINE IV ONE (15:27)
--- NOTE | 2017-12-05 15:57 | Cat Scan Report ---
CT HEAD WITHOUT CONTRAST: HISTORY: Headache, multiple sclerosis. TECHNIQUE: Sequential 2.5mm CT images. COMPARISON: none. FINDINGS: Cerebral Parenchyma: Within normal limits. Cerebellum: Within normal limits. Brainstem: Within normal limits. Ventricles: Normal. Sella: Normal. Extra-axial spaces: Normal. Basal Cisterns: Normal. Intracranial Hemorrhage: None. Midline Shift: None. Calvarium: Normal. Sinuses: Normal. Mastoid Air Cells: Normal. Visualized Orbits: Normal. IMPRESSION: Cranial CT scan within normal limits.
--- NOTE | 2017-12-05 18:02 | Emergency Department Report ---
ED General Adult HPI - General Chief complaint: Headache Stated complaint: MIGRANE HEAD ACHE Time Seen by Provider: 12/05/17 13:40 Source: patient Mode of arrival: Ambulatory Limitations: No Limitations - History of Present Illness Initial comments: Patient is 37 years old female with history of multiple sclerosis. Patient presented to the ER complaining of headache and left eye pain for the last 2 to see days. The patient described her current condition as typical and similar to how her multiple sclerosis flareup. Patient denied any fever, neck pain, nausea or vomiting. No new weakness or numbness or tingling sensation. Severity scale (0 -10): 2 - Related Data Home Medications Medication Instructions Recorded Confirmed Last Taken Baclofen 20 mg PO TID 02/08/17 02/08/17 Unknown Copaxone 40 mg IM 3XW 02/08/17 02/08/17 Unknown Ondansetron [Zofran TAB] 1 tab PO TID PRN 02/08/17 02/08/17 Unknown Percocet 10/325 mg 1 tab PO TID 02/08/17 02/08/17 Unknown Previous Rx's Medication Instructions Recorded Last Taken Type HYDROcodone/APAP 5-325 [[place] 1 each PO Q4HR PRN #14 tablet 02/09/17 Unknown Rx 5/325] Ibuprofen [Motrin] 600 mg PO Q8H PRN #12 tablet 07/11/17 Unknown Rx Allergies Allergy/AdvReac Type Severity Reaction Status Date / Time tramadol Allergy Unknown Verified 05/10/13 17:06 naproxen [From Naprosyn] AdvReac Shortness Verified 07/29/13 21:12 of Breath ED Review of Systems ROS: Stated complaint: MIGRANE HEAD ACHE Other details as noted in HPI Comment: All other systems reviewed and negative Constitutional: denies: chills, fever Eyes: as per HPI, eye pain Respiratory: denies: cough, orthopnea, shortness of breath, SOB with exertion, wheezing Cardiovascular: denies: chest pain, palpitations, dyspnea on exertion Gastrointestinal: denies: abdominal pain, nausea, vomiting, diarrhea, constipation, hematemesis, hematochezia Neurological: headache, numbness (left upper extremity which is chronic per patient report). denies: weakness, paresthesias, confusion, abnormal gait Psychiatric: denies: anxiety, depression, auditory hallucinations, visual hallucinations, homicidal thoughts ED Past Medical Hx - Past Medical History Previous Medical History?: Yes Hx Hypertension: Yes Hx Congestive Heart Failure: No Hx Diabetes: No Hx Headaches / Migraines: Yes Hx Asthma: No Hx COPD: No Hx HIV: No Additional medical history: migraines, MS - Surgical History Past Surgical History?: Yes Additional Surgical History: tonsillectomy - Social History Smoking Status: Never Smoker Substance Use Type: None - Medications Home Medications: Home Medications Medication Instructions Recorded Confirmed Last Taken Type Baclofen 20 mg PO TID 02/08/17 02/08/17 Unknown History Copaxone 40 mg IM 3XW 02/08/17 02/08/17 Unknown History Ondansetron [Zofran TAB] 1 tab PO TID PRN 02/08/17 02/08/17 Unknown History Percocet 10/325 mg 1 tab PO TID 02/08/17 02/08/17 Unknown History HYDROcodone/APAP 5-325 [[place] 1 each PO Q4HR PRN #14 tablet 02/09/17 Unknown Rx 5/325] Ibuprofen [Motrin] 600 mg PO Q8H PRN #12 tablet 07/11/17 Unknown Rx ED Physical Exam - General Limitations: No Limitations General appearance: alert, in no apparent distress - Head Head exam: Present: atraumatic, normocephalic, normal inspection - Eye Eye exam: Present: normal appearance, PERRL - ENT ENT exam: Present: normal exam, normal orophraynx, mucous membranes moist - Neck Neck exam: Present: normal inspection, full ROM. Absent: tenderness, meningismus, lymphadenopathy, thyromegaly - Respiratory Respiratory exam: Present: normal lung sounds bilaterally. Absent: respiratory distress, wheezes, rales, rhonchi, stridor, chest wall tenderness, accessory muscle use, decreased breath sounds, prolonged expiratory - Cardiovascular Cardiovascular Exam: Present: regular rate, normal rhythm, normal heart sounds - GI/Abdominal GI/Abdominal exam: Present: soft, normal bowel sounds. Absent: distended, tenderness, guarding, rebound, rigid, organomegaly, mass, bruit, pulsatile mass , hernia - Extremities Exam Extremities exam: Present: normal inspection, full ROM, normal capillary refill - Back Exam Back exam: Present: normal inspection, full ROM. Absent: tenderness, CVA tenderness (R), CVA tenderness (L), muscle spasm, paraspinal tenderness, vertebral tenderness, rash noted - Neurological Exam Neurological exam: Present: alert, oriented X3, CN II-XII intact, normal gait - Skin Skin exam: Present: warm, intact, normal color ED Course Vital Signs 12/05/17 12/05/17 12/05/17 12:02 14:25 14:37 Temperature 99.1 F Pulse Rate 70 Respiratory 18 18 18 Rate Blood Pressure 126/72 Blood Pressure [Right] O2 Sat by Pulse 100 100 Oximetry 12/05/17 12/05/17 15:22 16:08 Temperature 98.5 F Pulse Rate 69 Respiratory 18 18 Rate Blood Pressure Blood Pressure 118/66 [Right] O2 Sat by Pulse 100 Oximetry ED Medical Decision Making - Lab Data Result diagrams: 12/05/17 14:48 12/05/17 14:48 - Radiology Data Radiology results: report reviewed Referring Physician: GLORIA SCHULER Patient Name: AG ANTHONY Date of : 1980 Sex: Female Report Date: 2017-12-05 Report Status: Finalized Findings [address] [address] Cat Scan Report Signed Patient: AG ANTHONY MR#: [id number] : 1980 Acct:[id number] Age/Sex: 37 / F ADM Date: 12/05/17 Loc: ED Attending Dr: Ordering Physician: GLORIA SCHULER Date of Service: 12/05/17 Procedure(s): CT head/brain wo con Accession Number(s): [id number] cc: GLORIA SCHULER CT HEAD WITHOUT CONTRAST: HISTORY: Headache, multiple sclerosis. TECHNIQUE: Sequential 2.5mm CT images. COMPARISON: none. FINDINGS: Cerebral Parenchyma: Within normal limits. Cerebellum: Within normal limits. Brainstem: Within normal limits. Ventricles: Normal. Sella: Normal. Extra-axial spaces: Normal. Basal Cisterns: Normal. Intracranial Hemorrhage: None. Midline Shift: None. Calvarium: Normal. Sinuses: Normal. Mastoid Air Cells: Normal. Visualized Orbits: Normal. IMPRESSION: Cranial CT scan within normal limits. Transcribed By: TTR Dictated By: SAAHRA BURROWS JR, MD Electronically Authenticated By: SAHARA BURROWS JR, MD Signed Date/Time: 12/05/171533 DD/ 33 TD/TT: 12/05/171533 - Medical Decision Making I discussed the patient was Dr. Wheeler, he agreed to admit the patient to his service and he advised to admit the patient to [facility]. Critical care attestation.: If time is entered above; I have spent that time in minutes in the direct care of this critically ill patient, excluding procedure time. ED Disposition Clinical Impression: Multiple sclerosis exacerbation, Headache, Left eye pain Disposition: OP ADMIT IP TO THIS HOSP Is pt being admited?: Yes Condition: Stable Referrals: PRIMARY CARE, [Primary Care Provider] - 3-5 Days
[2017-12-06] MEDS ORDERED: MOTRIN PO PRN (00:10)
[2017-12-06] MEDS: PERCOCET 5/325 PO PRN ×2 (00:25→15:40)
[2017-12-06] MEDS ORDERED: ZOFRAN IV PRN (01:32)
[2017-12-06] MEDS ORDERED: TYLENOL PO PRN (01:32)
[2017-12-06] MEDS ORDERED: SODIUM CHLORIDE FLUSH SYRINGE 10 ML IV PRN (01:32)
[2017-12-06] MEDS ORDERED: MORPHINE IV PRN (01:32)
[2017-12-06] MEDS ORDERED: ZOFRAN PO PRN (01:36)
--- NOTE | 2017-12-06 06:12 | History and Physical Report ---
History of Present Illness Date of examination: 12/05/17 Date of admission: 12/05/17 18:02 Chief complaint: CC: Left eye Blurred vision and severe pain 2 days Increased numbness and weakness L side-2 days History of present illness: History of Present Illness: 37 years old female with history of multiple sclerosis since 2013 presented to the ER complaining of headache and left eye pain and blurry vision for the last 2 days. The patient described her current condition as typical and similar to her multiple sclerosis flareup. Patient denied any fever, neck pain , nausea or vomiting. Also c/o new weakness and numbness L side of the body.Able to walk.No tendency to fall. Past Medical History: Hypertension: Yes Migraines, MS since 2013---Goes to [facility] and gets copaxone prescriptions and IV Solumedrol 1 gm Q 24 H for flare ups for 3 days. Surgical History Past Surgical History?: Yes Additional Surgical History: tonsillectomy Social History x Smoking Status: Never Smoker Substance Use Type: None Family Hx Htn Medications Home Medications: Home Medications Medication Instructions Recorded Confirmed Last Taken Type Baclofen 20 mg PO TID 02/08/17 02/08/17 Unknown History Copaxone 40 mg IM 3XW 02/08/17 02/08/17 Unknown History Ondansetron [Zofran TAB] 1 tab PO TID PRN 02/08/17 02/08/17 Unknown History Percocet 10/325 mg 1 tab PO TID 02/08/17 02/08/17 Unknown History HYDROcodone/APAP 5-325 [[place] 1 each PO Q4HR PRN #14 tablet 02/09/17 Unknown Rx 5/325] Ibuprofen [Motrin] 600 mg PO Q8H PRN #12 tablet 07/11/17 Unknown Rx Review of Systems ROS: Stated complaint: MIGRANE HEAD ACHE Other details as noted in HPI Comment: All other systems reviewed and negative Constitutional: denies: chills, fever Eyes: as per HPI, eye pain Respiratory: denies: cough, orthopnea, shortness of breath, SOB with exertion, wheezing Cardiovascular: denies: chest pain, palpitations, dyspnea on exertion Gastrointestinal: denies: abdominal pain, nausea, vomiting, diarrhea, constipation, hematemesis, hematochezia Neurological: headache, numbness (left upper extremity which is chronic per patient report). denies: weakness, paresthesias, confusion, abnormal gait Psychiatric: denies: anxiety, depression, auditory hallucinations, visual hallucinations, homicidal thoughts Medications and Allergies Allergies Allergy/AdvReac Type Severity Reaction Status Date / Time tramadol Allergy Unknown Verified 05/10/13 17:06 naproxen [From Naprosyn] AdvReac Shortness Verified 07/29/13 21:12 of Breath Home Medications Medication Instructions Recorded Confirmed Last Taken Type Baclofen 20 mg PO TID 02/08/17 12/06/17 Unknown History Copaxone 40 mg IM 3XW 02/08/17 12/06/17 Unknown History Ondansetron [Zofran TAB] 1 tab PO TID PRN 02/08/17 12/05/17 Unknown History Percocet 10/325 mg 1 tab PO TID 02/08/17 12/05/17 Unknown History HYDROcodone/APAP 5-325 [[place] 1 each PO Q4HR PRN #14 tablet 02/09/17 12/06/17 Unknown Rx 5/325] Ibuprofen [Motrin] 600 mg PO Q8H PRN #12 tablet 07/11/17 12/05/17 Unknown Rx Active Meds: Active Medications Acetaminophen (Tylenol) 650 mg PO Q4H PRN PRN Reason: Pain MILD(1-3)/Fever >100.5/DE LEON Baclofen (Lioresal) 20 mg PO TID HASMUKH Dextrose/Sodium Chloride (D5ns) 1,000 mls @ 75 mls/hr IV DIRECT HASMUKH Methylprednisolone Sodium Succinate 1,000 mg/ Sodium Chloride 250 mls @ 250 mls /hr IV Q24H [facility] Ibuprofen (Motrin) 600 mg PO Q8H PRN PRN Reason: Pain, Mild (1-3) Morphine Sulfate (Morphine) 2 mg IV Q4H PRN PRN Reason: Pain, Moderate (4-6) Ondansetron HCl (Zofran) 4 mg IV Q8H PRN PRN Reason: Nausea And Vomiting Ondansetron HCl (Zofran) 4 mg PO TID PRN PRN Reason: Nausea Oxycodone/Acetaminophen (Percocet 5/325) 2 tab PO Q8H PRN PRN Reason: Pain, Moderate (4-6) Last Admin: 12/06/17 00:25 Dose: 2 tab Sodium Chloride (Sodium Chloride Flush Syringe 10 Ml) 10 ml IV BID HASMUKH Sodium Chloride (Sodium Chloride Flush Syringe 10 Ml) 10 ml IV PRN PRN PRN Reason: LINE FLUSH Exam - Constitutional Vitals: Temp Pulse Resp BP Pulse Ox 98.2 F 58 L 18 100/41 100 12/06/17 05:28 12/06/17 05:29 12/06/17 05:28 12/06/17 05:28 12/06/17 05:29 General appearance: Present: no acute distress, well-nourished - EENT Eyes: Present: PERRL ENT: hearing intact, clear oral mucosa - Neck Neck: Present: supple, normal ROM - Respiratory Respiratory effort: normal Respiratory: bilateral: CTA - Cardiovascular Heart rate: 80 Rhythm: regular Heart Sounds: Present: S1 & S2. Absent: rub, click - Extremities Extremities: no ischemia, pulses intact, pulses symmetrical, No edema Peripheral Pulses: within normal limits - Abdominal General gastrointestinal: Present: soft, non-tender, non-distended, normal bowel sounds Female genitourinary: Present: normal - Integumentary Integumentary: Present: clear, warm, dry - Musculoskeletal Musculoskeletal: gait normal, strength equal bilaterally - Psychiatric Psychiatric: appropriate mood/affect, intact judgment & insight - Neurologic Neurologic: CNII-XII intact, focal deficits (4/5 power in LUE and LLE) Results - Labs CBC & Chem 7: 12/05/17 14:48 12/05/17 14:48 Labs: Laboratory Last Values WBC 7.2 K/mm3 (4.5-11.0) 12/05/17 14:48 RBC 4.24 M/mm3 (3.65-5.03) 12/05/17 14:48 Hgb 12.7 gm/dl (10.1-14.3) 12/05/17 14:48 Hct 38.5 % (30.3-42.9) 12/05/17 14:48 MCV 91 fl (79-97) 12/05/17 14:48 MCH 30 pg (28-32) 12/05/17 14:48 MCHC 33 % (30-34) 12/05/17 14:48 RDW 14.4 % (13.2-15.2) 12/05/17 14:48 Plt Count 307 K/mm3 (140-440) 12/05/17 14:48 Lymph % (Auto) 26.6 % (13.4-35.0) 12/05/17 14:48 [place] % (Auto) 8.5 % (0.0-7.3) H 12/05/17 14:48 Eos % (Auto) 2.1 % (0.0-4.3) 12/05/17 14:48 Baso % (Auto) 0.6 % (0.0-1.8) 12/05/17 14:48 Lymph # 1.9 K/mm3 (1.2-5.4) 12/05/17 14:48 [place] # 0.6 K/mm3 (0.0-0.8) 12/05/17 14:48 Eos # 0.2 K/mm3 (0.0-0.4) 12/05/17 14:48 Baso # 0.0 K/mm3 (0.0-0.1) 12/05/17 14:48 Seg Neutrophils % 62.2 % (40.0-70.0) 12/05/17 14:48 Seg Neutrophils # 4.5 K/mm3 (1.8-7.7) 12/05/17 14:48 Sodium 137 mmol/L (137-145) 12/05/17 14:48 Potassium 4.2 mmol/L (3.6-5.0) 12/05/17 14:48 Chloride 99.3 mmol/L (98-107) 12/05/17 14:48 Carbon Dioxide 25 mmol/L (22-30) 12/05/17 14:48 Anion Gap 17 mmol/L 12/05/17 14:48 BUN 13 mg/dL (7-17) 12/05/17 14:48 Creatinine 1.0 mg/dL (0.7-1.2) 12/05/17 14:48 Estimated GFR > 60 ml/min 12/05/17 14:48 BUN/Creatinine Ratio 13 % 12/05/17 14:48 Glucose 91 mg/dL (65-100) 12/05/17 14:48 Hemoglobin A1c 6.0 % (4-6) 12/05/17 14:48 Calcium 9.4 mg/dL (8.4-10.2) 12/05/17 14:48 Total Bilirubin 0.40 mg/dL (0.1-1.2) 12/05/17 14:48 AST 14 units/L (5-40) 12/05/17 14:48 ALT 6 units/L (7-56) L 12/05/17 14:48 Alkaline Phosphatase 80 units/L (35-129) 12/05/17 14:48 Total Protein 7.5 g/dL (6.3-8.2) 12/05/17 14:48 Albumin 4.4 g/dL (3.9-5) 12/05/17 14:48 Albumin/Globulin Ratio 1.4 % 12/05/17 14:48 - Imaging and Cardiology CT Scan - head: report reviewed (NAF) Assessment and Plan Advance Directives: Yes (Full code) VTE prophylaxis?: Chemical Plan of care discussed with patient/family: Yes - Patient Problems (1) Multiple sclerosis exacerbation Current Visit: Yes Status: Acute Plan to address problem: IV solu medrol 1 gm q24 for 3 days Neuro consult requested (2) Migraine Current Visit: Yes Status: Acute Qualifiers: Status migrainosus presence: without status migrainosus Plan to address problem: Treat symptommatically Maxalt prn (3) DVT prophylaxis Current Visit: Yes Status: Acute Plan to address problem: On Lovenox
[2017-12-06] MEDS: D5NS 1,000 ML IV SCH ×2 (06:35→23:26)
[2017-12-06] MEDS ORDERED: PERCOCET PO SCH (08:00)
[2017-12-06] MEDS ORDERED: BACLOFEN 20 MG PO SCH (08:00)
[2017-12-06] MEDS ORDERED: COPAXONE 40 MG IM SCH (10:00)
[2017-12-06] MEDS: PROTONIX PO SCH (10:05)
[2017-12-06] MEDS: LIORESAL PO SCH ×3 (10:05→23:23)
[2017-12-06] MEDS: SODIUM CHLORIDE FLUSH SYRINGE 10 ML IV SCH ×2 (10:06→23:24)
--- NOTE | 2017-12-06 12:57 | Consultation ---
History of Present Illness Consult date: 12/06/17 Requesting physician: GURDEEP IRWIN Reason for Consult: MS Flair History of present illness: 37 year old female with diagnosis of multiple sclerosis, just made last year, and migraine headache. She has been taking Copaxone 40 mg 3 times per week since diagnosis. She has had 4 exacerbations over the past year, last one was 4 weeks ago, requiring I.V. steroids. She presented to the ED yesterday with complaint of migraine headache for the past 5 days unresponsive to her usual dose of Percocet. Also yesterday she developed eye pain, blurred vision, numbness on left face, arm and leg. I.V. solumedrol has been started and she feels her vision is improving. The eye pain has resolved. A dose of morphine was given for headache in the ED and this too has resolved. Past History Past Medical History: hypertension, migraines, other (multiple sclerosis.) Past Surgical History: No surgical history Family history: other (family hx of MS) Medications and Allergies Allergies Allergy/AdvReac Type Severity Reaction Status Date / Time tramadol Allergy Unknown Verified 05/10/13 17:06 naproxen [From Naprosyn] AdvReac Shortness Verified 07/29/13 21:12 of Breath Home Medications Medication Instructions Recorded Confirmed Last Taken Type Baclofen 20 mg PO TID 02/08/17 12/06/17 Unknown History Copaxone 40 mg IM 3XW 02/08/17 12/06/17 Unknown History Ondansetron [Zofran TAB] 1 tab PO TID PRN 02/08/17 12/05/17 Unknown History Percocet 10/325 mg 1 tab PO TID 02/08/17 12/05/17 Unknown History HYDROcodone/APAP 5-325 [[place] 1 each PO Q4HR PRN #14 tablet 02/09/17 12/06/17 Unknown Rx 5/325] Ibuprofen [Motrin] 600 mg PO Q8H PRN #12 tablet 07/11/17 12/05/17 Unknown Rx Active Meds: Active Medications Acetaminophen (Tylenol) 650 mg PO Q4H PRN PRN Reason: Pain MILD(1-3)/Fever >100.5/DE LEON Baclofen (Lioresal) 20 mg PO TID HASMUKH Last Admin: 12/06/17 10:05 Dose: 20 mg Dextrose/Sodium Chloride (D5ns) 1,000 mls @ 75 mls/hr IV DIRECT [facility] Last Admin: 12/06/17 06:35 Dose: 75 mls/hr Methylprednisolone Sodium Succinate 1,000 mg/ Sodium Chloride 250 mls @ 250 mls /hr IV Q24H [facility] Last Admin: 12/06/17 06:28 Dose: 250 mls/hr Ibuprofen (Motrin) 600 mg PO Q8H PRN PRN Reason: Pain, Mild (1-3) Miscellaneous Medication (Copaxone) 40 mg IM 3XW [facility] Morphine Sulfate (Morphine) 2 mg IV Q4H PRN PRN Reason: Pain, Moderate (4-6) Ondansetron HCl (Zofran) 4 mg IV Q8H PRN PRN Reason: Nausea And Vomiting Ondansetron HCl (Zofran) 4 mg PO TID PRN PRN Reason: Nausea Oxycodone/Acetaminophen (Percocet 5/325) 2 tab PO Q8H PRN PRN Reason: Pain, Moderate (4-6) Last Admin: 12/06/17 00:25 Dose: 2 tab Pantoprazole Sodium (Protonix) 40 mg PO QDAY [facility] Last Admin: 12/06/17 10:05 Dose: 40 mg Sodium Chloride (Sodium Chloride Flush Syringe 10 Ml) 10 ml IV BID [facility] Last Admin: 12/06/17 10:06 Dose: 10 ml Sodium Chloride (Sodium Chloride Flush Syringe 10 Ml) 10 ml IV PRN PRN PRN Reason: LINE FLUSH Zolpidem Tartrate (Ambien) 5 mg PO QHS PRN PRN Reason: Sleep Review of Systems Constitutional: no weight loss, no weight gain, no fever, no chills Ears, nose, mouth and throat: no tinnitis, no decreased hearing Cardiovascular: no chest pain, no orthopnea, no palpitations, no rapid/ irregular heart beat, no edema, no syncope, no lightheadedness, no shortness of breath Respiratory: no cough, no shortness of breath, no dyspnea on exertion, no congestion Gastrointestinal: no abdominal pain, no nausea, no vomiting, no diarrhea Genitourinary Female: no dysuria, no urinary frequency, no urgency Musculoskeletal: arm numbness/tingling, low back pain, leg numbness/tingling Integumentary: no rash Neurological: numbness, tingling, headaches, migraines, no parathesias, no vertigo, no gait dysfunction, no double vision Psychiatric: no anxiety, no memory loss Physical Examination - Vital Signs Vital Signs: Vital Signs Temp Pulse Resp BP Pulse Ox 99.1 F 70 18 126/72 100 12/05/17 12:02 12/05/17 12:02 12/05/17 12:02 12/05/17 12:02 12/05/17 12:02 HEENT w/o inflamation or lesions/ Neck supple Chest - clear to auscultation Heart - reg. rate. nl S-1, S-2. Abdomen - soft, nontender Extremities - roll inspector CCE. NEUROLOGICAL - speech clear. CN's - EOMs full, face symmetric, decreased sensation V-2. tongue midline, hearing intact. Motor - 5/5 throughout Sensory - decreased to touch and pin right arm and leg. Cerebellar - intact Kraig, FTN, fine finger movements/ Results - Laboratory Findings CBC and BMP: 12/05/17 14:48 12/05/17 14:48 Abnormal Lab Findings: Abnormal Labs 12/05/17 12/05/17 14:48 14:48 [place] % (Auto) 8.5 H ALT 6 L Assessment and Plan 37 year old female with diagnosis of multiple sclerosis, presents with migraine and a flare-up of disease. Solumedrol treatment is underway. Will continue for total of 3 days. Will follow up with her neurologist in December when an MRI scan is planned. Plan - Continue Solumedrol
--- NOTE | 2017-12-06 13:39 | Progress Note ---
Assessment and Plan Assessment and plan: Ms. Eddy is a 37 yo woman with a history of migraine headaches, multiple sclerosis and obesity who presented with left eye blurriness. -Multiple sclerosis exacerbation: treat with high dose iv steroids x 3 days -Migraine headaches: pain control, symptomatic support -Obesity: lifestyle modification History Interval history: Patient was seen and examined. Follow-up on current diagnosis of headaches, left eye pain and blurriness, all improved. Overnight uneventful. Patient denies any chest pain, shortness breath, nausea/vomiting or severe headaches. Imaging, nursing note, chart, labs and old chart reviewed. Discussed with patient. Hospitalist Physical - Physical exam Narrative exam: GEN: WDWN, NAD, Awake, Alert, Orientated x 3, bmi 39.5 HEENT: NCAT, EOMI, PERRL, OP Clear NECK: supple, no adenopathy, no thyromegaly, no JVD CVS/HEART: RRR, normal S1S2, pulses present bilaterally CHEST/LUNGS: CTA B, Symmetrical chest expansion, good air entry bilaterally GI/Abdomen: soft, NTND, good bowel sounds, no guarding or rebound /Bladder: no suprapubic tenderness, no CVA or paraspinal tenderness EXT/Skin: no c/c/e, no obvious rash MSK: FROM x 4 Neuro: CN 2-12 grossly intact except sensory on right, no new focal deficits Psych: calm - Constitutional Vitals: Temp Pulse Resp BP Pulse Ox 98.2 F 58 L 18 100/41 100 12/06/17 05:28 12/06/17 05:29 12/06/17 05:28 12/06/17 05:28 12/06/17 05:29 General appearance: Present: no acute distress, well-nourished Results - Labs CBC & Chem 7: 12/05/17 14:48 12/05/17 14:48 Labs: Laboratory Last Values WBC 7.2 K/mm3 (4.5-11.0) 12/05/17 14:48 RBC 4.24 M/mm3 (3.65-5.03) 12/05/17 14:48 Hgb 12.7 gm/dl (10.1-14.3) 12/05/17 14:48 Hct 38.5 % (30.3-42.9) 12/05/17 14:48 MCV 91 fl (79-97) 12/05/17 14:48 MCH 30 pg (28-32) 12/05/17 14:48 MCHC 33 % (30-34) 12/05/17 14:48 RDW 14.4 % (13.2-15.2) 12/05/17 14:48 Plt Count 307 K/mm3 (140-440) 12/05/17 14:48 Lymph % (Auto) 26.6 % (13.4-35.0) 12/05/17 14:48 [place] % (Auto) 8.5 % (0.0-7.3) H 12/05/17 14:48 Eos % (Auto) 2.1 % (0.0-4.3) 12/05/17 14:48 Baso % (Auto) 0.6 % (0.0-1.8) 12/05/17 14:48 Lymph # 1.9 K/mm3 (1.2-5.4) 12/05/17 14:48 [place] # 0.6 K/mm3 (0.0-0.8) 12/05/17 14:48 Eos # 0.2 K/mm3 (0.0-0.4) 12/05/17 14:48 Baso # 0.0 K/mm3 (0.0-0.1) 12/05/17 14:48 Seg Neutrophils % 62.2 % (40.0-70.0) 12/05/17 14:48 Seg Neutrophils # 4.5 K/mm3 (1.8-7.7) 12/05/17 14:48 Sodium 137 mmol/L (137-145) 12/05/17 14:48 Potassium 4.2 mmol/L (3.6-5.0) 12/05/17 14:48 Chloride 99.3 mmol/L (98-107) 12/05/17 14:48 Carbon Dioxide 25 mmol/L (22-30) 12/05/17 14:48 Anion Gap 17 mmol/L 12/05/17 14:48 BUN 13 mg/dL (7-17) 12/05/17 14:48 Creatinine 1.0 mg/dL (0.7-1.2) 12/05/17 14:48 Estimated GFR > 60 ml/min 12/05/17 14:48 BUN/Creatinine Ratio 13 % 12/05/17 14:48 Glucose 91 mg/dL (65-100) 12/05/17 14:48 Hemoglobin A1c 6.0 % (4-6) 12/05/17 14:48 Calcium 9.4 mg/dL (8.4-10.2) 12/05/17 14:48 Total Bilirubin 0.40 mg/dL (0.1-1.2) 12/05/17 14:48 AST 14 units/L (5-40) 12/05/17 14:48 ALT 6 units/L (7-56) L 12/05/17 14:48 Alkaline Phosphatase 80 units/L (35-129) 12/05/17 14:48 Total Protein 7.5 g/dL (6.3-8.2) 12/05/17 14:48 Albumin 4.4 g/dL (3.9-5) 12/05/17 14:48 Albumin/Globulin Ratio 1.4 % 12/05/17 14:48
[2017-12-06] MEDS ORDERED: COPAXONE SQ SCH (19:00)
[2017-12-06] MEDS: AMBIEN PO PRN (23:23)
[2017-12-07] MEDS: PERCOCET 5/325 PO PRN ×3 (06:29→22:38)
[2017-12-07 06:42] LABS: BUN/Creatinine Ratio 12; Blood Urea Nitrogen 11 mg/dL (7-17); Calcium 9.8 mg/dL (8.4-10.2); Hemolysis Index 4
[2017-12-07] MEDS: PROTONIX PO SCH (10:08)
[2017-12-07] MEDS: LIORESAL PO SCH ×3 (10:09→22:35)
[2017-12-07] MEDS: SODIUM CHLORIDE FLUSH SYRINGE 10 ML IV SCH ×2 (10:10→22:35)
--- NOTE | 2017-12-07 11:40 | Progress Note ---
Assessment and Plan Assessment and plan: Ms. Eddy is a 37 yo woman with a history of migraine headaches, multiple sclerosis and obesity who presented with left eye blurriness. -Multiple sclerosis exacerbation: treat with high dose iv steroids day 2/3 -Migraine headaches: pain control, symptomatic support -Obesity: lifestyle modification History Interval history: Patient was seen and examined. Follow-up on current diagnosis of headaches, left eye pain and blurriness, all improved. Overnight uneventful. Patient denies any chest pain, shortness breath, nausea/vomiting or severe headaches. Imaging, nursing note, chart, labs and old chart reviewed. Discussed with patient. Hospitalist Physical - Physical exam Narrative exam: GEN: WDWN, NAD, Awake, Alert, Orientated x 3, bmi 39.5 HEENT: NCAT, EOMI, PERRL, OP Clear NECK: supple, no adenopathy, no thyromegaly, no JVD CVS/HEART: RRR, normal S1S2, pulses present bilaterally CHEST/LUNGS: CTA B, Symmetrical chest expansion, good air entry bilaterally GI/Abdomen: soft, NTND, good bowel sounds, no guarding or rebound /Bladder: no suprapubic tenderness, no CVA or paraspinal tenderness EXT/Skin: no c/c/e, no obvious rash MSK: FROM x 4 Neuro: CN 2-12 grossly intact except sensory on right, no new focal deficits Psych: calm - Constitutional Vitals: Temp Pulse Resp BP Pulse Ox 98.1 F 55 L 18 143/69 99 12/07/17 05:29 12/07/17 05:29 12/07/17 05:29 12/07/17 05:29 12/07/17 05:29 General appearance: Present: no acute distress, well-nourished Results - Labs CBC & Chem 7: 12/05/17 14:48 12/07/17 05:57 Labs: Laboratory Last Values WBC 7.2 K/mm3 (4.5-11.0) 12/05/17 14:48 RBC 4.24 M/mm3 (3.65-5.03) 12/05/17 14:48 Hgb 12.7 gm/dl (10.1-14.3) 12/05/17 14:48 Hct 38.5 % (30.3-42.9) 12/05/17 14:48 MCV 91 fl (79-97) 12/05/17 14:48 MCH 30 pg (28-32) 12/05/17 14:48 MCHC 33 % (30-34) 12/05/17 14:48 RDW 14.4 % (13.2-15.2) 12/05/17 14:48 Plt Count 307 K/mm3 (140-440) 12/05/17 14:48 Lymph % (Auto) 26.6 % (13.4-35.0) 12/05/17 14:48 [facility] % (Auto) 8.5 % (0.0-7.3) H 12/05/17 14:48 Eos % (Auto) 2.1 % (0.0-4.3) 12/05/17 14:48 Baso % (Auto) 0.6 % (0.0-1.8) 12/05/17 14:48 Lymph # 1.9 K/mm3 (1.2-5.4) 12/05/17 14:48 [facility] # 0.6 K/mm3 (0.0-0.8) 12/05/17 14:48 Eos # 0.2 K/mm3 (0.0-0.4) 12/05/17 14:48 Baso # 0.0 K/mm3 (0.0-0.1) 12/05/17 14:48 Seg Neutrophils % 62.2 % (40.0-70.0) 12/05/17 14:48 Seg Neutrophils # 4.5 K/mm3 (1.8-7.7) 12/05/17 14:48 Sodium 140 mmol/L (137-145) 12/07/17 05:57 Potassium 4.3 mmol/L (3.6-5.0) 12/07/17 05:57 Chloride 106.2 mmol/L (98-107) 12/07/17 05:57 Carbon Dioxide 23 mmol/L (22-30) 12/07/17 05:57 Anion Gap 15 mmol/L 12/07/17 05:57 BUN 11 mg/dL (7-17) 12/07/17 05:57 Creatinine 0.9 mg/dL (0.7-1.2) 12/07/17 05:57 Estimated GFR > 60 ml/min 12/07/17 05:57 BUN/Creatinine Ratio 12 % 12/07/17 05:57 Glucose 136 mg/dL (65-100) H 12/07/17 05:57 Hemoglobin A1c 6.0 % (4-6) 12/05/17 14:48 Calcium 9.8 mg/dL (8.4-10.2) 12/07/17 05:57 Total Bilirubin 0.40 mg/dL (0.1-1.2) 12/05/17 14:48 AST 14 units/L (5-40) 12/05/17 14:48 ALT 6 units/L (7-56) L 12/05/17 14:48 Alkaline Phosphatase 80 units/L (35-129) 12/05/17 14:48 Total Protein 7.5 g/dL (6.3-8.2) 12/05/17 14:48 Albumin 4.4 g/dL (3.9-5) 12/05/17 14:48 Albumin/Globulin Ratio 1.4 % 12/05/17 14:48
[2017-12-07] MEDS: D5NS 1,000 ML IV SCH (13:00)
[2017-12-07] MEDS ORDERED: TUMS PO ONE (15:00)
[2017-12-07] MEDS: AMBIEN PO PRN (22:42)
[2017-12-08] MEDS: D5NS 1,000 ML IV SCH (00:32)
[2017-12-08] MEDS: PERCOCET 5/325 PO PRN (06:18)
[2017-12-08] MEDS: LIORESAL PO SCH (08:13)
[2017-12-08] MEDS: PROTONIX PO SCH (09:04)
[2017-12-08] MEDS: SODIUM CHLORIDE FLUSH SYRINGE 10 ML IV SCH (09:05)
--- NOTE | 2017-12-08 10:49 | Discharge Summary ---
Providers - Providers Date of Admission: 12/05/17 18:02 Date of discharge: 12/08/17 Attending physician: GURDEEP IRWIN 12/06/17 01:32 Consult to Physician [CONS] Routine Comment: Consulting Provider: MYRA CARMONA Physician Instructions: Reason For Exam: MS Exacerbation Primary care physician: [employer] Hospitalization Condition: Stable Hospital course: Assessment and plan: Ms. Eddy is a 37 yo woman with a history of migraine headaches, multiple sclerosis and obesity who presented with left eye blurriness and headaches. -Multiple sclerosis exacerbation: treat with high dose iv steroids day 07/20 -Migraine headaches: pain control, symptomatic support -Obesity: lifestyle modification According to [place] expressive therapist aware. Ms. Eddy received 90 pills of Percocet on from Dr. Roland Walden (); therefore, I will not give anymore narcotics. Disposition: DC-01 TO HOME OR SELFCARE Time spent for discharge: 36 minutes Core Measure Documentation - Palliative Care Palliative Care/ Comfort Measures: Not Applicable - Core Measures Any of the following diagnoses?: none - VTE Discharge Requirements Deep Vein Thrombosis/Pulmonary Embolism Present on Admission: No Has pt received <5 days of overlap therapy or INR<2.0: No Anticoagulant overlap therapy prescribed at discharge: No Contraindication No Overlap Therapy order at DC: Not Indicated Exam - Physical Exam Narrative exam: GEN: WDWN, NAD, Awake, Alert, Orientated x 3, bmi 41.7 HEENT: NCAT, EOMI, PERRL, OP Clear NECK: supple, no adenopathy, no thyromegaly, no JVD CVS/HEART: RRR, normal S1S2, pulses present bilaterally CHEST/LUNGS: CTA B, Symmetrical chest expansion, good air entry bilaterally GI/Abdomen: soft, NTND, good bowel sounds, no guarding or rebound /Bladder: no suprapubic tenderness, no CVA or paraspinal tenderness EXT/Skin: no c/c/e, no obvious rash MSK: FROM x 4 Neuro: CN 2-12 grossly intact except sensory on right, no new focal deficits Psych: calm - Constitutional Vitals: Temp Pulse Resp BP Pulse Ox 98.0 F 50 L 18 138/78 99 12/08/17 05:51 12/08/17 05:51 12/08/17 05:51 12/08/17 05:51 12/08/17 05:51 Plan Activity: no driving until cleared by PCP, other (no strenous activity until cleared by Neurologist) Diet: low salt Additional Instructions: See Dr. Roland Walden as soon as possible Follow up with: PRIMARY CARE,MD [Primary Care Provider] - 3-5 Days AN KATE MD [Staff Physician] - 7 Days Prescriptions: Zolpidem [Ambien] 5 mg PO QHS PRN #10 tablet PRN Reason: Sleep methylPREDNISolone [Medrol Dose Marito] 1 dose PO DAILY #1 pack Ondansetron [Zofran Odt] 4 mg PO Q8HR PRN #9 tab.rapdis PRN Reason: Nausea Pantoprazole [Protonix TAB] 40 mg PO QDAY #15 tablet
[2017-12-08 13:11] VITALS: BP 147/76
== END 2017-12-08 14:00 | disposition home or self-care (01) | DRG 59 ==
LOC: ED 11:37 → 3A 18:02
PROVIDERS: ADMIT Internal Medicine; ATTEND Internal Medicine
DX: G35 Multiple sclerosis (principal); Z68.41 Body mass index [BMI] 40.0-44.9, adult; H57.12 Ocular pain, left eye; G43.909 Migraine, unspecified, not intractable, without status migrainosus; E66.9 Obesity, unspecified; I10 Essential (primary) hypertension; H53.8 Other visual disturbances; Z79.899 Other long term (current) drug therapy
CPT/HCPCS: 36415; 70450; 80048; 80053; 83036; 85025; J1100; J2270; J2405; J2930; J3010; J7042; J7050

== ENCOUNTER 2018-11-25 21:03 | Emergency (ER) | payer OTHER ==
--- NOTE | 2018-11-25 22:40 | Event Note ---
ED Screening Note Date of service: 11/25/18 Time: 22:40 ED Screening Note: 38 Y o female with PMH of MS presents with flank and lows abd pain This initial assessment/diagnostic orders/clinical plan/treatment(s) is/are subject to change based on patients health status, clinical progression and re- assessment by fellow clinical providers in the ED. Further treatment and workup at subsequent clinical providers discretion. Patient/guardian urged not to elope from the ED as their condition may be serious if not clinically assessed and managed. Initial orders include: ua, labs
[2018-11-25 22:43] LABS: Basophils % (Auto) 0.6 % (0.0-1.8); Eosinophils # (Auto) 0.1 K/mm3 (0.0-0.4); Eosinophils % (Auto) 1.4 % (0.0-4.3); Hematocrit 38.1 % (30.3-42.9); Hemoglobin 12.5 gm/dl (10.1-14.3); Lymphocytes # (Auto) 1.5 K/mm3 (1.2-5.4); Lymphocytes % (Auto) 21.2 % (13.4-35.0); Mean Corpuscular HGB Conc 33 % (30-34); Mean Corpuscular Volume 92 fl (79-97); Monocytes # (Auto) 0.5 K/mm3 (0.0-0.8); Monocytes % (Auto) 7.2 % (0.0-7.3); Platelet Count 280 K/mm3 (140-440); Red Blood Count 4.13 M/mm3 (3.65-5.03); Red Cell Distribution Width 13.7 % (13.2-15.2)
[2018-11-25 23:03] LABS: Alanine Aminotransferase 15 units/L (7-56); Albumin 4.2 g/dL (3.9-5); BUN/Creatinine Ratio 13; Blood Urea Nitrogen 10 mg/dL (7-17); Calcium 9.6 mg/dL (8.4-10.2); Hemolysis Index 28
[2018-11-26 00:10] LABS: Bilirubin,Urine MOD (Negative); Blood,Urine NEG (Negative); Color,Urine Yellow (Yellow); Mucus,Urine FEW /HPF; Protein,Urine <15 mg/dL mg/dL (Negative)
[2018-11-26 00:26] LABS: Ictotest,Urine Negative (Negative)
[2018-11-26] MEDS ORDERED: PEPCID PO ONE (00:52)
[2018-11-26] MEDS ORDERED: DECADRON IM ONE (00:52)
[2018-11-26] MEDS ORDERED: BENTYL IM ONE (00:52)
--- NOTE | 2018-11-26 01:58 | Emergency Department Report ---
ED Abdominal Pain HPI - General Chief Complaint: Abdominal Pain Stated Complaint: MS/LT SIDE STOMACH/BACK PAIN Time Seen by Provider: 11/25/18 22:39 Source: patient Mode of arrival: Ambulatory Limitations: No Limitations - History of Present Illness Initial Comments: Patient is a 38-year-old Nigerien female with a history of chronic pain due to MS and GERD and presents to the ED with complaint of acute onset persistent severe left arm pain, low back pain and diffuse abdominal pain for the last 6 hours. Patient denies dizziness, fever, chills, nausea, vomiting, chest pain, shortness of breath, dysuria, urinary frequency and urgency, hematuria, topher rrhea, heavy lifting or fall, traumatic injury or sore throat. MD Complaint: abdominal pain, other (left hand pain) -: Sudden, hour(s) (6), month(s) (1) Location: diffuse Radiation: none Migration to: no migration Severity: moderate Severity scale (0 -10): 5 Quality: cramping, aching Consistency: intermittent Improves With: nothing Worsens With: nothing Associated Symptoms: denies other symptoms, nausea. denies: vomiting, diarrhea, fever, chills, constipation, dysuria, hematemesis, hematochezia, melena, hematuria, anorexia, syncope, other - Related Data LMP (females 10-50): this week Home Medications Medication Instructions Recorded Confirmed Last Taken Baclofen 20 mg PO TID 02/08/17 12/06/17 Unknown Copaxone 40 mg IM 3XW 02/08/17 12/06/17 Unknown Ondansetron [Zofran TAB] 1 tab PO TID PRN 02/08/17 12/05/17 Unknown Percocet 10/325 mg 1 tab PO TID 02/08/17 12/05/17 Unknown Previous Rx's Medication Instructions Recorded Last Taken Type Ibuprofen [Motrin 600 MG tab] 600 mg PO Q8H PRN #12 tablet 07/11/17 Unknown Rx Acetaminophen [Acetaminophen TAB] 325 mg PO Q4H PRN #30 tablet 12/08/17 Unknown Rx Ondansetron [Zofran Odt] 4 mg PO Q8HR PRN #9 tab.rapdis 12/08/17 Unknown Rx Pantoprazole [Protonix TAB] 40 mg PO QDAY #15 tablet 12/08/17 Unknown Rx Zolpidem [Ambien] 5 mg PO QHS PRN #10 tablet 12/08/17 Unknown Rx methylPREDNISolone [Medrol Dose 1 dose PO DAILY #1 pack 12/08/17 Unknown Rx Marito] Ibuprofen [Motrin] 600 mg PO Q8H PRN #20 tablet 06/11/18 Unknown Rx Prednisone [predniSONE 10 mg 10 mg PO .TAPER #1 tab.ds.pk 06/11/18 Unknown Rx (6-Day Pack, 21 Tabs)] Dicyclomine [Bentyl] 20 mg PO Q6H PRN #20 tablet 11/26/18 Unknown Rx Ondansetron [Zofran Odt] 4 mg PO Q8HR PRN #15 tab.rapdis 11/26/18 Unknown Rx Ranitidine HCl [Zantac] 150 mg PO Q12H #30 tablet 11/26/18 Unknown Rx tiZANidine [Zanaflex 4mg TAB] 4 mg PO Q8H PRN #15 tablet 11/26/18 Unknown Rx Allergies Allergy/AdvReac Type Severity Reaction Status Date / Time tramadol Allergy Unknown Verified 06/11/18 16:53 naproxen [From Naprosyn] AdvReac Shortness Verified 06/11/18 16:53 of Breath ED Review of Systems ROS: Stated complaint: MS/LT SIDE STOMACH/BACK PAIN Other details as noted in HPI Constitutional: denies: chills, fever Eyes: denies: eye pain, eye discharge, vision change ENT: denies: ear pain, throat pain Respiratory: denies: cough, shortness of breath, wheezing Cardiovascular: denies: chest pain, palpitations Endocrine: no symptoms reported Gastrointestinal: abdominal pain. denies: nausea, diarrhea Genitourinary: denies: urgency, dysuria, discharge Musculoskeletal: arthralgia (left hand pain). denies: back pain, joint swelling Skin: denies: rash, lesions Neurological: denies: headache, weakness, paresthesias Psychiatric: denies: anxiety, depression Hematological/Lymphatic: denies: easy bleeding, easy bruising ED Past Medical Hx - Past Medical History Previous Medical History?: Yes Hx Hypertension: Yes Hx Congestive Heart Failure: No Hx Diabetes: No Hx Headaches / Migraines: Yes Hx Asthma: No Hx COPD: No Hx HIV: No Additional medical history: migraines, MS - Surgical History Past Surgical History?: Yes Additional Surgical History: tonsillectomy. herniated disc - Social History Smoking Status: Never Smoker Substance Use Type: None - Medications Home Medications: Home Medications Medication Instructions Recorded Confirmed Last Taken Type Baclofen 20 mg PO TID 02/08/17 12/06/17 Unknown History Copaxone 40 mg IM 3XW 02/08/17 12/06/17 Unknown History Ondansetron [Zofran TAB] 1 tab PO TID PRN 02/08/17 12/05/17 Unknown History Percocet 10/325 mg 1 tab PO TID 02/08/17 12/05/17 Unknown History Ibuprofen [Motrin 600 MG tab] 600 mg PO Q8H PRN #12 tablet 07/11/17 12/05/17 Unknown Rx Acetaminophen [Acetaminophen TAB] 325 mg PO Q4H PRN #30 tablet 12/08/17 Unknown Rx Ondansetron [Zofran Odt] 4 mg PO Q8HR PRN #9 tab.rapdis 12/08/17 Unknown Rx Pantoprazole [Protonix TAB] 40 mg PO QDAY #15 tablet 12/08/17 Unknown Rx Zolpidem [Ambien] 5 mg PO QHS PRN #10 tablet 12/08/17 Unknown Rx methylPREDNISolone [Medrol Dose 1 dose PO DAILY #1 pack 12/08/17 Unknown Rx Marito] Ibuprofen [Motrin] 600 mg PO Q8H PRN #20 tablet 06/11/18 Unknown Rx Prednisone [predniSONE 10 mg 10 mg PO .TAPER #1 tab.ds.pk 06/11/18 Unknown Rx (6-Day Pack, 21 Tabs)] Dicyclomine [Bentyl] 20 mg PO Q6H PRN #20 tablet 11/26/18 Unknown Rx Ondansetron [Zofran Odt] 4 mg PO Q8HR PRN #15 tab.rapdis 11/26/18 Unknown Rx Ranitidine HCl [Zantac] 150 mg PO Q12H #30 tablet 11/26/18 Unknown Rx tiZANidine [Zanaflex 4mg TAB] 4 mg PO Q8H PRN #15 tablet 11/26/18 Unknown Rx ED Physical Exam - General Limitations: No Limitations General appearance: alert, in no apparent distress - Head Head exam: Present: atraumatic, normocephalic, normal inspection - Eye Eye exam: Present: normal appearance, PERRL, EOMI Pupils: Present: normal accommodation - ENT ENT exam: Present: normal exam, normal orophraynx, mucous membranes moist, TM's normal bilaterally, normal external ear exam - Neck Neck exam: Present: normal inspection, full ROM. Absent: tenderness - Respiratory Respiratory exam: Present: normal lung sounds bilaterally. Absent: respiratory distress, wheezes, rhonchi, chest wall tenderness, accessory muscle use, decreased breath sounds, prolonged expiratory - Cardiovascular Cardiovascular Exam: Present: regular rate, normal rhythm, normal heart sounds. Absent: systolic murmur, diastolic murmur, rubs, gallop - GI/Abdominal GI/Abdominal exam: Present: soft, normal bowel sounds. Absent: tenderness, guarding, hypoactive bowel sounds, organomegaly - Rectal Rectal exam: Present: deferred - Extremities Exam Extremities exam: Present: normal inspection, normal capillary refill - Back Exam Back exam: Present: normal inspection, full ROM. Absent: tenderness, CVA tenderness (R), muscle spasm, paraspinal tenderness, vertebral tenderness - Neurological Exam Neurological exam: Present: alert, oriented X3, CN II-XII intact, normal gait, reflexes normal - Psychiatric Psychiatric exam: Present: normal affect, normal mood - Skin Skin exam: Present: warm, dry, intact, normal color. Absent: rash ED Course Vital Signs 11/25/18 21:46 Temperature 98.8 F Pulse Rate 88 Respiratory 18 Rate Blood Pressure 151/87 O2 Sat by Pulse 99 Oximetry - Reevaluation(s) Reevaluation #1: 11/26/18 02:16 Patient is alert and oriented 3 and is not in distress. The vital signs are stable. Lab test results are reviewed and are all unremarkable. Patient was treated for pain in the ED and on reevaluation, patient's pain is well controlled with medications. Patient had stated that she has an appointment with a GI physician in 24 hours. Patient is advised to follow up with a GI phy sician as scheduled and follow up also with her primary care physician in 7-10 days for reevaluation. Patient is sent home advised to return to the ED immediately if symptoms get worse. ED Medical Decision Making - Lab Data Result diagrams: 11/25/18 22:20 11/25/18 22:20 - Medical Decision Making Patient is alert and oriented 3 and is not in distress. The vital signs are stable. Lab test results are reviewed and are all unremarkable. Patient was treated for pain in the ED and on reevaluation, patient's pain is well controlled with medications. Patient had stated that she has an appointment with a GI physician in 24 hours. Patient is advised to follow up with a GI physician as scheduled and follow up also with her primary care physician in 7- 10 days for reevaluation. Patient is sent home advised to return to the ED immediately if symptoms get worse. - Differential Diagnosis chronic pain syndrome; abdominal muscle spasm; left hand muscle strain Critical care attestation.: If time is entered above; I have spent that time in minutes in the direct care of this critically ill patient, excluding procedure time. ED Disposition Clinical Impression: Strain of muscle of left hand Abdominal pain Qualifiers: Abdominal location: generalized Qualified Code(s): R10.84 - Generalized abdominal pain GERD (gastroesophageal reflux disease) Qualifiers: Esophagitis presence: without esophagitis Qualified Code(s): K21.9 - Gastro- esophageal reflux disease without esophagitis Disposition: TO HOME OR SELFCARE Is pt being admited?: No Does the pt Need Aspirin: No Condition: Stable Instructions: Muscle Strain (ED), Abdominal Pain (ED) Additional Instructions: Take medications with food, drink plenty of fluids and follow. Primary care physician in 7-10 days. Follow-up also radiates to her physician in 2 days as advised. Return to the ED immediately if symptoms get worse. Prescriptions: Dicyclomine [Bentyl] 20 mg PO Q6H PRN #20 tablet PRN Reason: Pain , Severe (7-10) tiZANidine [Zanaflex 4mg TAB] 4 mg PO Q8H PRN #15 tablet PRN Reason: Spasms Ranitidine HCl [Zantac] 150 mg PO Q12H #30 tablet Ondansetron [Zofran Odt] 4 mg PO Q8HR PRN #15 tab.rapdis PRN Reason: Nausea Referrals: MAHAMED YAN MD [Primary Care Provider] - 3-5 Days Time of Disposition: 01:56 Print Language: PALAUAN
[2018-11-26 02:15] VITALS: BP 151/87
== END 2018-11-26 02:15 | disposition home or self-care (01) ==
LOC: ED 21:03
DX: S66.912A Strain of unspecified muscle, fascia and tendon at wrist and hand level, left hand, initial encounter (principal); K21.9 Gastro-esophageal reflux disease without esophagitis; M54.5 Low back pain; I10 Essential (primary) hypertension; G43.909 Migraine, unspecified, not intractable, without status migrainosus; Z79.899 Other long term (current) drug therapy; Z88.6 Allergy status to analgesic agent; Z88.8 Allergy status to other drugs, medicaments and biological substances; X58.XXXA Exposure to other specified factors, initial encounter; Y93.89 Activity, other specified; Y92.89 Other specified places as the place of occurrence of the external cause; Y99.8 Other external cause status
CPT/HCPCS: 36415; 80053; 81001; 84703; 85025; 96372; 99283; J0500; J1100

== ENCOUNTER 2019-07-15 06:01 | Emergency (ER) | payer OTHER ==
[2019-07-15 08:25] VITALS: BP 110/74
--- NOTE | 2019-07-15 08:45 | Emergency Department Report ---
ED General Adult HPI - General Chief complaint: Fall Stated complaint: FALL BACK PAIN Time Seen by Provider: 07/15/19 07:15 Source: patient Mode of arrival: Ambulatory Limitations: No Limitations - History of Present Illness Initial comments: Patient is a pleasant 39-year-old -[place] female who comes to the ER today after sustaining a fall yesterday. She states she was in her kitchen and she fell. She states that her leg and her back were hurting her. However, on exam the pain is been relieved with Motrin that she took at home. 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 Patient does have a history of MS. patient also states that she has frequent falls. She called her neurologist Dr. Black yesterday after the fall. He advised her that anytime she had problems that she needed to document it. So the patient is here for documentation of the fall, however, again she has no pain or tenderness at this time. We had a long discussion about her plan of care. Patient denies any other symptoms including change in vision, swallowing, chills fever, parasthesis and weakness. Patient does follow with Dr. Black she saw him about a week and a half ago when he took her off 1 of her MS medications. She cannot tell me the name. She was taken off it because of side effects that she was having. She states that it made her feel funny. So they took her off for a planned 1 month holiday. And then they will get a reevaluate what med she needed to be on. She has an MRI scheduled for October. However, they were talking about moving up the MRI date. Patient also has a medical history of hypertension. Medications are currently oxycodone, gabapentin, Zanaflex, and CopAXone injections. She is on no steroids at this time due to her medication holiday. -: Sudden, days(s) Severity scale (0 -10): 0 Associated Symptoms: denies other symptoms Treatments Prior to Arrival: none - Related Data Home Medications Medication Instructions Recorded Confirmed Last Taken Baclofen 20 mg PO TID 02/08/17 12/06/17 Unknown Copaxone 40 mg IM 3XW 02/08/17 12/06/17 Unknown Ondansetron [Zofran TAB] 1 tab PO TID PRN 02/08/17 12/05/17 Unknown Percocet 10/325 mg 1 tab PO TID 02/08/17 12/05/17 Unknown Previous Rx's Medication Instructions Recorded Last Taken Type Ibuprofen [Motrin 600 MG tab] 600 mg PO Q8H PRN #12 tablet 07/11/17 Unknown Rx Acetaminophen [Acetaminophen TAB] 325 mg PO Q4H PRN #30 tablet 12/08/17 Unknown Rx Ondansetron [Zofran Odt] 4 mg PO Q8HR PRN #9 tab.rapdis 12/08/17 Unknown Rx Pantoprazole [Protonix TAB] 40 mg PO QDAY #15 tablet 12/08/17 Unknown Rx Zolpidem [Ambien] 5 mg PO QHS PRN #10 tablet 12/08/17 Unknown Rx methylPREDNISolone [Medrol Dose 1 dose PO DAILY #1 pack 12/08/17 Unknown Rx Marito] Ibuprofen [Motrin] 600 mg PO Q8H PRN #20 tablet 06/11/18 Unknown Rx Prednisone [predniSONE 10 mg 10 mg PO .TAPER #1 tab.ds.pk 06/11/18 Unknown Rx (6-Day Pack, 21 Tabs)] Dicyclomine [Bentyl] 20 mg PO Q6H PRN #20 tablet 11/26/18 Unknown Rx Ondansetron [Zofran Odt] 4 mg PO Q8HR PRN #15 tab.rapdis 11/26/18 Unknown Rx raNITIdine HCl [Zantac] 150 mg PO Q12H #30 tablet 11/26/18 Unknown Rx tiZANidine [Zanaflex 4mg TAB] 4 mg PO Q8H PRN #15 tablet 11/26/18 Unknown Rx Allergies Allergy/AdvReac Type Severity Reaction Status Date / Time tramadol Allergy Unknown Verified 06/11/18 16:53 naproxen [From Naprosyn] AdvReac Shortness Verified 06/11/18 16:53 of Breath ED Review of Systems ROS: Stated complaint: FALL BACK PAIN Other details as noted in HPI Comment: All other systems reviewed and negative ED Past Medical Hx - Past Medical History Previous Medical History?: Yes Hx Hypertension: Yes Hx Congestive Heart Failure: No Hx Diabetes: No Hx Headaches / Migraines: Yes Hx Asthma: No Hx COPD: No Hx HIV: No Additional medical history: migraines, MS - Surgical History Past Surgical History?: Yes Additional Surgical History: tonsillectomy. herniated disc - Social History Smoking Status: Never Smoker Substance Use Type: None - Medications Home Medications: Home Medications Medication Instructions Recorded Confirmed Last Taken Type Baclofen 20 mg PO TID 02/08/17 12/06/17 Unknown History Copaxone 40 mg IM 3XW 02/08/17 12/06/17 Unknown History Ondansetron [Zofran TAB] 1 tab PO TID PRN 02/08/17 12/05/17 Unknown History Percocet 10/325 mg 1 tab PO TID 02/08/17 12/05/17 Unknown History Ibuprofen [Motrin 600 MG tab] 600 mg PO Q8H PRN #12 tablet 07/11/17 12/05/17 Unknown Rx Acetaminophen [Acetaminophen TAB] 325 mg PO Q4H PRN #30 tablet 12/08/17 Unknown Rx Ondansetron [Zofran Odt] 4 mg PO Q8HR PRN #9 tab.rapdis 12/08/17 Unknown Rx Pantoprazole [Protonix TAB] 40 mg PO QDAY #15 tablet 12/08/17 Unknown Rx Zolpidem [Ambien] 5 mg PO QHS PRN #10 tablet 12/08/17 Unknown Rx methylPREDNISolone [Medrol Dose 1 dose PO DAILY #1 pack 12/08/17 Unknown Rx Marito] Ibuprofen [Motrin] 600 mg PO Q8H PRN #20 tablet 06/11/18 Unknown Rx Prednisone [predniSONE 10 mg 10 mg PO .TAPER #1 tab.ds.pk 06/11/18 Unknown Rx (6-Day Pack, 21 Tabs)] Dicyclomine [Bentyl] 20 mg PO Q6H PRN #20 tablet 11/26/18 Unknown Rx Ondansetron [Zofran Odt] 4 mg PO Q8HR PRN #15 tab.rapdis 11/26/18 Unknown Rx raNITIdine HCl [Zantac] 150 mg PO Q12H #30 tablet 11/26/18 Unknown Rx tiZANidine [Zanaflex 4mg TAB] 4 mg PO Q8H PRN #15 tablet 11/26/18 Unknown Rx ED Physical Exam - General Limitations: No Limitations General appearance: alert, in no apparent distress - Head Head exam: Present: atraumatic, normocephalic - Eye Eye exam: Present: normal appearance, PERRL, EOMI - ENT ENT exam: Present: normal exam, mucous membranes moist - Neck Neck exam: Present: normal inspection - Respiratory Respiratory exam: Present: normal lung sounds bilaterally. Absent: respiratory distress - Cardiovascular Cardiovascular Exam: Present: regular rate, normal rhythm. Absent: systolic murmur, diastolic murmur, rubs, gallop - GI/Abdominal GI/Abdominal exam: Present: soft, normal bowel sounds - Extremities Exam Extremities exam: Present: normal inspection, full ROM, normal capillary refill - Back Exam Back exam: Present: normal inspection, full ROM. Absent: tenderness, CVA tenderness (R), CVA tenderness (L), muscle spasm, paraspinal tenderness, vertebral tenderness - Neurological Exam Neurological exam: Present: alert, oriented X3, CN II-XII intact, other (STEADY GAIT) - Psychiatric Psychiatric exam: Present: normal affect, normal mood - Skin Skin exam: Present: warm, dry, intact, normal color. Absent: rash ED Course Vital Signs 07/15/19 07/15/19 06:06 08:24 Temperature 97.9 F 97.9 F Pulse Rate 83 77 Respiratory 18 20 Rate Blood Pressure 148/82 Blood Pressure 110/74 [Right] O2 Sat by Pulse 100 100 Oximetry ED Medical Decision Making - Medical Decision Making See HPI. Patient does not require any diagnostic testing at this time. She is here with her niece. Dr. Black's office has now opened. She is got a call him explained to him in the office the events of the last 24 hours and see if she can have her appointment moved up. I do not want to assume a MS exacerbation at this time, and give the patient steroids: Especially in light of her sedation holiday. I feel that this will alter her neurologist ability to do a thorough and complete exam in the context of her being off her MS medications. She is reliable for follow-up. And she has family here with her. Both patient and family verbalized understanding of discharge plan of care. patient was diagnosed with MS 3 years ago and is well versed in care. She denies any ocular symptoms. Her vital signs are stable. She has no fever. She is ambulatory. She has no complaints. Vital Signs 07/15/19 07/15/19 06:06 08:24 Temperature 97.9 F 97.9 F Pulse Rate 83 77 Respiratory 18 20 Rate Blood Pressure 148/82 Blood Pressure 110/74 [Right] O2 Sat by Pulse 100 100 Oximetry - Differential Diagnosis FALL RO INJURY; HX MS Critical care attestation.: If time is entered above; I have spent that time in minutes in the direct care of this critically ill patient, excluding procedure time. ED Disposition Clinical Impression: Fall, History of multiple sclerosis Disposition: DC-01 TO HOME OR SELFCARE Is pt being admited?: No Does the pt Need Aspirin: No Condition: Stable Additional Instructions: CALL YOUR NEURO, DR BLACK NOW, GIVE HIM THE INFO I PROVIDED TO YOU AND SEE IF HE CAN SEE YOU GABRIELLE Referrals: PRIMARY CARE, [Primary Care Provider] - 3-5 Days Time of Disposition: 08:44
== END 2019-07-15 09:32 | disposition home or self-care (01) ==
LOC: ED 06:01
DX: G35 Multiple sclerosis (principal); Z88.6 Allergy status to analgesic agent; Z91.81 History of falling; W19.XXXA Unspecified fall, initial encounter; Y93.89 Activity, other specified; Y92.89 Other specified places as the place of occurrence of the external cause; Y99.8 Other external cause status
CPT/HCPCS: 99282

== ENCOUNTER 2020-04-14 21:30 | Emergency (ER) | payer BC ==
[2020-04-14 22:18] VITALS: BP 175/97
--- NOTE | 2020-04-14 22:52 | XRay Report ---
LUMBAR SPINE 3 VIEWS INDICATION: lower back pain. COMPARISON: No relevant prior imaging study available. FINDINGS: No acute skeletal abnormality. No significant degenerative changes. SI joints are within normal limit s. Alignment is normal. IMPRESSION: 1. No acute findings. Signer Name: Demar Moreno MD Signed: 04/14/2020 10:48 PM Workstation Name: [id number]
--- NOTE | 2020-04-14 23:41 | Emergency Department Report ---
ED Back Pain/Injury HPI - General Chief Complaint: Back Pain/Injury Stated Complaint: FALL/LEFT SIDE PAIN Time Seen by Provider: 04/14/20 23:33 Source: patient, family Limitations: No Limitations - History of Present Illness MD Complaint: back pain, back injury, fall -: Sudden Similar Symptoms Previously: No Place: home Radiation: none Quality: dull Consistency: constant Improves With: none Worsens With: movement Context: fall Associated Symptoms: denies: denies other symptoms, weakness, chest pain, numbness, cough, difficulty urinating, diaphoresis, incontinence, fever/chills, constipation, headaches, abdominal pain, malaise, nausea/vomiting, rash, seizure, shortness of breath, syncope - Related Data Home Medications Medication Instructions Recorded Confirmed Last Taken Baclofen 20 mg PO TID 02/08/17 12/06/17 Unknown Copaxone 40 mg IM 3XW 02/08/17 12/06/17 Unknown Ondansetron [Zofran TAB] 1 tab PO TID PRN 02/08/17 12/05/17 Unknown Percocet 10/325 mg 1 tab PO TID 02/08/17 12/05/17 Unknown Previous Rx's Medication Instructions Recorded Last Taken Type Ibuprofen [Motrin 600 MG tab] 600 mg PO Q8H PRN #12 tablet 07/11/17 Unknown Rx Acetaminophen [Acetaminophen TAB] 325 mg PO Q4H PRN #30 tablet 12/08/17 Unknown Rx Ondansetron [Zofran Odt] 4 mg PO Q8HR PRN #9 tab.rapdis 12/08/17 Unknown Rx Pantoprazole [Protonix TAB] 40 mg PO QDAY #15 tablet 12/08/17 Unknown Rx Zolpidem [Ambien] 5 mg PO QHS PRN #10 tablet 12/08/17 Unknown Rx methylPREDNISolone [Medrol Dose 1 dose PO DAILY #1 pack 12/08/17 Unknown Rx Marito] Dicyclomine [Bentyl] 20 mg PO Q6H PRN #20 tablet 11/26/18 Unknown Rx Ondansetron [Zofran Odt] 4 mg PO Q8HR PRN #15 tab.rapdis 11/26/18 Unknown Rx raNITIdine HCl [Zantac] 150 mg PO Q12H #30 tablet 11/26/18 Unknown Rx tiZANidine [Zanaflex 4mg TAB] 4 mg PO Q8H PRN #15 tablet 11/26/18 Unknown Rx Ibuprofen [Motrin 600 MG tab] 600 mg PO Q8H PRN #30 tablet 12/21/19 Unknown Rx Prednisone [predniSONE 10 mg 10 mg PO .TAPER #21 tab.ds.pk 12/21/19 Unknown Rx (6-Day Pack, 21 Tabs)] methOCARBAMOL [Robaxin TAB] 500 mg PO Q6H #20 tablet 04/15/20 Unknown Rx predniSONE [Deltasone] 20 mg PO QDAY #7 tab 04/15/20 Unknown Rx Allergies Allergy/AdvReac Type Severity Reaction Status Date / Time tramadol Allergy Unknown Verified 06/11/18 16:53 naproxen [From Naprosyn] AdvReac Shortness Verified 06/11/18 16:53 of Breath ED Review of Systems ROS: Stated complaint: FALL/LEFT SIDE PAIN Other details as noted in HPI Comment: All other systems reviewed and negative ED Past Medical Hx - Past Medical History Previous Medical History?: Yes Hx Hypertension: Yes Hx Congestive Heart Failure: No Hx Diabetes: No Hx Headaches / Migraines: Yes Hx Asthma: No Hx COPD: No Hx HIV: No Additional medical history: migraines, MS - Surgical History Past Surgical History?: Yes Additional Surgical History: tonsillectomy. herniated disc C-spine - Social History Smoking Status: Never Smoker Substance Use Type: None - Medications Home Medications: Home Medications Medication Instructions Recorded Confirmed Last Taken Type Baclofen 20 mg PO TID 02/08/17 12/06/17 Unknown History Copaxone 40 mg IM 3XW 02/08/17 12/06/17 Unknown History Ondansetron [Zofran TAB] 1 tab PO TID PRN 02/08/17 12/05/17 Unknown History Percocet 10/325 mg 1 tab PO TID 02/08/17 12/05/17 Unknown History Ibuprofen [Motrin 600 MG tab] 600 mg PO Q8H PRN #12 tablet 07/11/17 12/05/17 Unknown Rx Acetaminophen [Acetaminophen TAB] 325 mg PO Q4H PRN #30 tablet 12/08/17 Unknown Rx Ondansetron [Zofran Odt] 4 mg PO Q8HR PRN #9 tab.rapdis 12/08/17 Unknown Rx Pantoprazole [Protonix TAB] 40 mg PO QDAY #15 tablet 12/08/17 Unknown Rx Zolpidem [Ambien] 5 mg PO QHS PRN #10 tablet 12/08/17 Unknown Rx methylPREDNISolone [Medrol Dose 1 dose PO DAILY #1 pack 12/08/17 Unknown Rx Marito] Dicyclomine [Bentyl] 20 mg PO Q6H PRN #20 tablet 11/26/18 Unknown Rx Ondansetron [Zofran Odt] 4 mg PO Q8HR PRN #15 tab.rapdis 11/26/18 Unknown Rx raNITIdine HCl [Zantac] 150 mg PO Q12H #30 tablet 11/26/18 Unknown Rx tiZANidine [Zanaflex 4mg TAB] 4 mg PO Q8H PRN #15 tablet 11/26/18 Unknown Rx Ibuprofen [Motrin 600 MG tab] 600 mg PO Q8H PRN #30 tablet 12/21/19 Unknown Rx Prednisone [predniSONE 10 mg 10 mg PO .TAPER #21 tab.ds.pk 12/21/19 Unknown Rx (6-Day Pack, 21 Tabs)] methOCARBAMOL [Robaxin TAB] 500 mg PO Q6H #20 tablet 04/15/20 Unknown Rx predniSONE [Deltasone] 20 mg PO QDAY #7 tab 04/15/20 Unknown Rx ED Physical Exam - General Limitations: No Limitations General appearance: alert, in no apparent distress - Head Head exam: Present: atraumatic, normocephalic, normal inspection - Eye Eye exam: Present: normal appearance, PERRL, EOMI. Absent: scleral icterus, conjunctival injection, periorbital swelling Pupils: Present: normal accommodation - ENT ENT exam: Present: normal exam, mucous membranes moist, TM's normal bilaterally - Neck Neck exam: Present: normal inspection, full ROM - Respiratory Respiratory exam: Present: normal lung sounds bilaterally. Absent: respiratory distress, wheezes, rales, rhonchi, chest wall tenderness, accessory muscle use - Cardiovascular Cardiovascular Exam: Present: regular rate, normal rhythm. Absent: systolic murmur, diastolic murmur, rubs, gallop - GI/Abdominal GI/Abdominal exam: Present: soft, normal bowel sounds. Absent: distended, tenderness, hyperactive bowel sounds, hypoactive bowel sounds - Extremities Exam Extremities exam: Present: normal inspection, full ROM, normal capillary refill - Back Exam Back exam: Present: normal inspection, tenderness, paraspinal tenderness. Absent: CVA tenderness (R), CVA tenderness (L) - Neurological Exam Neurological exam: Present: alert, oriented X3, CN II-XII intact - Psychiatric Psychiatric exam: Present: normal affect, normal mood - Skin Skin exam: Present: warm, dry, intact, normal color. Absent: rash ED Course Vital Signs 04/14/20 22:14 Temperature 98.3 F Pulse Rate 89 Respiratory 18 Rate Blood Pressure 175/97 O2 Sat by Pulse 99 Oximetry ED Medical Decision Making - Radiology Data Radiology results: report reviewed [facility] [address] [place] [address] XRay Report Signed Patient: AG ANTHONY MR#: [id number] : 1980 Acct:[id number] Age/Sex: 40 / F ADM Date: 04/14/20 Loc: ED Attending Dr: Ordering Physician: ED MD LYNDA Date of Service: 04/14/20 Procedure(s): XR spine lumbosacral 2-3V Accession Number(s): [id number] cc: ED DOCMD Fluoro Time In Minutes: LUMBAR SPINE 3 VIEWS INDICATION: lower back pain. COMPARISON: No relevant prior imaging study available. FINDINGS: No acute skeletal abnormality. No significant degenerative changes. SI joints are within normal limits. Alignment is normal. IMPRESSION: 1. No acute findings. Signer Name: Demar Moreno MD Signed: 04/14/2020 10:48 PM Workstation Name: [id number] Transcribed By: Dictated By: Demar Moreno MD Electronically Authenticated By: Demar Moreno MD Signed Date/Time: 04/14/202247 DD/ 46 TD/TT: Critical care attestation.: If time is entered above; I have spent that time in minutes in the direct care of this critically ill patient, excluding procedure time. ED Disposition Clinical Impression: Back pain, Lumbar back pain Disposition: - TO HOME OR SELFCARE Is pt being admited?: No Does the pt Need Aspirin: No Condition: Stable Instructions: Back Injury Prevention, Acute Back Pain, Adult, Fall Prevention in the Home, Adult Prescriptions: predniSONE [Deltasone] 20 mg PO QDAY #7 tab methOCARBAMOL [Robaxin TAB] 500 mg PO Q6H #20 tablet Referrals: PRIMARY CARE, [Primary Care Provider] - 3-5 Days [facility] [Provider Group] - 3-5 Days
[2020-04-15 00:46] LABS: HCG Qualitative,Urine Negative (Negative)
== END 2020-04-15 00:44 | disposition home or self-care (01) ==
LOC: ED 21:30
DX: M54.5 Low back pain (principal); I10 Essential (primary) hypertension; G43.909 Migraine, unspecified, not intractable, without status migrainosus; Z98.890 Other specified postprocedural states; Z79.899 Other long term (current) drug therapy; Z88.8 Allergy status to other drugs, medicaments and biological substances
CPT/HCPCS: 72100; 81025

== ENCOUNTER 2020-12-16 12:25 | Emergency (ER) | payer BC ==
[2020-12-16 13:17] VITALS: BP 136/80
--- NOTE | 2020-12-16 16:05 | Emergency Department Report ---
ED Lower Extremity HPI - General Chief Complaint: Extremity Injury, Lower Stated Complaint: RT FOOT INJURY Time Seen by Provider: 12/16/20 15:53 Source: patient Mode of arrival: Ambulatory Limitations: No Limitations - History of Present Illness Initial Comments: 40-year-old -[place] female presents to the emergency room for right foot pain. Patient states that she had slipped on a rug at home and believes she twisted her foot. Patient states that the pain is worse with bearing weight and better with rest. Patient states that she has not had her menstrual cycle in 3 months in has never been but unsure if she could be . Patient states she did a test last month and it became negative. MD Complaint: foot injury Onset/Timin -: days(s) Injury: Foot: Right Type of Injury: inversion, eversion Improves With: rest Worsens With: weight bearing, movement, palpation Associated Symptoms: swelling, able to partially bear weight - Related Data Home Medications Medication Instructions Recorded Confirmed Last Taken Baclofen 20 mg PO TID 02/08/17 12/06/17 Unknown Copaxone 40 mg IM 3XW 02/08/17 12/06/17 Unknown Ondansetron [Zofran TAB] 1 tab PO TID PRN 02/08/17 12/05/17 Unknown Percocet 10/325 mg 1 tab PO TID 02/08/17 12/05/17 Unknown Previous Rx's Medication Instructions Recorded Last Taken Type Ibuprofen [Motrin 600 MG tab] 600 mg PO Q8H PRN #12 tablet 07/11/17 Unknown Rx Acetaminophen [Acetaminophen TAB] 325 mg PO Q4H PRN #30 tablet 12/08/17 Unknown Rx Ondansetron [Zofran Odt] 4 mg PO Q8HR PRN #9 tab.rapdis 12/08/17 Unknown Rx Pantoprazole [Protonix TAB] 40 mg PO QDAY #15 tablet 12/08/17 Unknown Rx Zolpidem [Ambien] 5 mg PO QHS PRN #10 tablet 12/08/17 Unknown Rx methylPREDNISolone [Medrol Dose 1 dose PO DAILY #1 pack 12/08/17 Unknown Rx Marito] Dicyclomine [Bentyl] 20 mg PO Q6H PRN #20 tablet 11/26/18 Unknown Rx Ondansetron [Zofran Odt] 4 mg PO Q8HR PRN #15 tab.rapdis 11/26/18 Unknown Rx raNITIdine HCl [Zantac] 150 mg PO Q12H #30 tablet 11/26/18 Unknown Rx tiZANidine [Zanaflex 4mg TAB] 4 mg PO Q8H PRN #15 tablet 11/26/18 Unknown Rx Ibuprofen [Motrin 600 MG tab] 600 mg PO Q8H PRN #30 tablet 12/21/19 Unknown Rx Prednisone [predniSONE 10 mg 10 mg PO .TAPER #21 tab.ds.pk 12/21/19 Unknown Rx (6-Day Pack, 21 Tabs)] methOCARBAMOL [Robaxin TAB] 500 mg PO Q6H #20 tablet 04/15/20 Unknown Rx predniSONE [Deltasone] 20 mg PO QDAY #7 tab 04/15/20 Unknown Rx Allergies Allergy/AdvReac Type Severity Reaction Status Date / Time tramadol Allergy Itching Verified 12/16/20 13:17 naproxen [From Naprosyn] AdvReac Shortness Verified 12/16/20 13:17 of Breath ED Review of Systems ROS: Stated complaint: RT FOOT INJURY Other details as noted in HPI Comment: All other systems reviewed and negative ED Past Medical Hx - Past Medical History Hx Hypertension: Yes Hx Congestive Heart Failure: No Hx Diabetes: No Hx Headaches / Migraines: Yes Hx Asthma: No Hx COPD: No Hx HIV: No Additional medical history: migraines, MS - Surgical History Additional Surgical History: tonsillectomy. herniated disc C-spine - Social History Smoking Status: Never Smoker Substance Use Type: None - Medications Home Medications: Home Medications Medication Instructions Recorded Confirmed Last Taken Type Baclofen 20 mg PO TID 02/08/17 12/06/17 Unknown History Copaxone 40 mg IM 3XW 02/08/17 12/06/17 Unknown History Ondansetron [Zofran TAB] 1 tab PO TID PRN 02/08/17 12/05/17 Unknown History Percocet 10/325 mg 1 tab PO TID 02/08/17 12/05/17 Unknown History Ibuprofen [Motrin 600 MG tab] 600 mg PO Q8H PRN #12 tablet 07/11/17 12/05/17 Unknown Rx Acetaminophen [Acetaminophen TAB] 325 mg PO Q4H PRN #30 tablet 12/08/17 Unknown Rx Ondansetron [Zofran Odt] 4 mg PO Q8HR PRN #9 tab.rapdis 12/08/17 Unknown Rx Pantoprazole [Protonix TAB] 40 mg PO QDAY #15 tablet 12/08/17 Unknown Rx Zolpidem [Ambien] 5 mg PO QHS PRN #10 tablet 12/08/17 Unknown Rx methylPREDNISolone [Medrol Dose 1 dose PO DAILY #1 pack 12/08/17 Unknown Rx Marito] Dicyclomine [Bentyl] 20 mg PO Q6H PRN #20 tablet 11/26/18 Unknown Rx Ondansetron [Zofran Odt] 4 mg PO Q8HR PRN #15 tab.rapdis 11/26/18 Unknown Rx raNITIdine HCl [Zantac] 150 mg PO Q12H #30 tablet 11/26/18 Unknown Rx tiZANidine [Zanaflex 4mg TAB] 4 mg PO Q8H PRN #15 tablet 11/26/18 Unknown Rx Ibuprofen [Motrin 600 MG tab] 600 mg PO Q8H PRN #30 tablet 12/21/19 Unknown Rx Prednisone [predniSONE 10 mg 10 mg PO .TAPER #21 tab.ds.pk 12/21/19 Unknown Rx (6-Day Pack, 21 Tabs)] methOCARBAMOL [Robaxin TAB] 500 mg PO Q6H #20 tablet 04/15/20 Unknown Rx predniSONE [Deltasone] 20 mg PO QDAY #7 tab 04/15/20 Unknown Rx ED Physical Exam - General Limitations: No Limitations General appearance: alert, in no apparent distress - Head Head exam: Present: atraumatic, normocephalic - Eye Eye exam: Present: normal appearance - ENT ENT exam: Present: normal external ear exam - Neck Neck exam: Present: normal inspection, full ROM - Respiratory Respiratory exam: Absent: respiratory distress, accessory muscle use - Cardiovascular Cardiovascular Exam: Present: regular rate - Expanded Lower Extremity Exam Right Hip exam: Present: normal inspection, full ROM Upper Leg exam: Present: normal inspection, full ROM Knee exam: Present: normal inspection, full ROM Lower Leg exam: Present: normal inspection, full ROM Ankle exam: Present: normal inspection, full ROM Foot/Toe exam: Present: full ROM, tenderness, swelling Neuro vascular tendon exam: Present: no vascular compromise - Back Exam Back exam: Present: normal inspection - Neurological Exam Neurological exam: Present: alert, oriented X3 - Psychiatric Psychiatric exam: Present: normal affect, normal mood - Skin Skin exam: Present: warm, dry, intact, normal color. Absent: rash ED Course Vital Signs 12/16/20 13:13 Temperature 97.5 F L Pulse Rate 63 Respiratory 17 Rate Blood Pressure 136/80 [Right] O2 Sat by Pulse 100 Oximetry ED Lower Extremity MDM - Radiology Data Radiology results: report reviewed [facility] [address] [place] [address] XRay Report Signed Patient: AG ANTHONY MR#: [id number] : 1980 Acct:[id number] Age/Sex: 40 / F ADM Date: 12/16/20 Loc: ED Attending Dr: Ordering Physician: HIGINIO WILBURN DO Date of Service: 12/16/20 Procedure(s): XR foot 3+V RT Accession Number(s): [id number] cc: HIGINIO WILBURN DO Fluoro Time In Minutes: RIGHT FOOT 3 VIEW(S) INDICATION / CLINICAL INFORMATION: right foot pain/injury COMPARISON: None available. FINDINGS: BONES / JOINT(S): No acute fracture or subluxation. No significant arthritis. Type III accessory navicular. Hammertoe deformities of the second through fourth digits. SOFT TISSUES: No significant abnormality. ADDITIONAL FINDINGS: None. Signer Name: Aashish Mayen MD Signed: 12/16/2020 5:23 PM Workstation Name: [id number] Transcribed By: SB Dictated By: AASHISH MAYEN MD Electronically Authenticated By: AASHISH MAYEN MD Signed Date/Time: 12/16/201722 DD/ 19 TD/TT: Print Cancel - Medical Decision Making 40-year-old -[place] female presents to the emergency room for right foot pain. Patient states that she had slipped on a rug at home and believes she twisted her foot. Patient states that the pain is worse with bearing weight and better with rest. Patient states that she has not had her menstrual cycle in 3 months in has never been but unsure if she could be . Patient states she did a test last month and it became negative. hCG, x-ray of right foot Negative test negative foot x-ray. Patient take ibuprofen Tylenol for pain. She can wrap her foot with a Cornelio bandage. Follow-up with her primary care provider. Critical care attestation.: If time is entered above; I have spent that time in minutes in the direct care of this critically ill patient, excluding procedure time. ED Disposition Clinical Impression: Right foot injury, Foot pain, right Disposition: DC-01 TO HOME OR SELFCARE Is pt being admited?: No Does the pt Need Aspirin: No Condition: Stable Additional Instructions: test is negative, x-ray of right foot is negative. I recommend Tylenol ibuprofen you can use an Cornelio bandage. Follow-up with your [facility] for amenorrhea. Follow with your primary care provider Referrals: [facility] [Provider Group] - 3-5 Days [facility] [Provider Group] - 3-5 Days [facility] [Provider Group] - 3-5 Days Forms: Work/School Release Form(ED) Time of Disposition: 18:16
[2020-12-16 16:38] LABS: HCG Qualitative,Urine Negative (Negative)
--- NOTE | 2020-12-16 17:27 | XRay Report ---
RIGHT FOOT 3 VIEW(S) INDICATION / CLINICAL INFORMATION: right foot pain/injury COMPARISON: None available. FINDINGS: BONES / JOINT(S): No acute fracture or subluxation. No significant arthritis. Type III accessory raz cular. Hammertoe deformities of the second through fourth digits. SOFT TISSUES: No significant abnormality. ADDITIONAL FINDINGS: None. Signer Name: Aashish Mayen MD Signed: 12/16/2020 5:23 PM Workstation Name: [email or web address]
== END 2020-12-16 18:30 | disposition home or self-care (01) ==
LOC: ED 12:25
DX: S99.921A Unspecified injury of right foot, initial encounter (principal); W01.0XXA Fall on same level from slipping, tripping and stumbling without subsequent striking against object, initial encounter; Y93.89 Activity, other specified; Y92.89 Other specified places as the place of occurrence of the external cause; Y99.8 Other external cause status; Z88.5 Allergy status to narcotic agent; Z79.899 Other long term (current) drug therapy; G43.909 Migraine, unspecified, not intractable, without status migrainosus
CPT/HCPCS: 36415; 81025; 84702; 99283